=== PATIENT | male | born 1940 | race Caucasian/White ===

== ENCOUNTER 2016-12-17 14:20 | Emergency (ER) | payer MEDICARE, OTHER ==
[~2016-12-17] VITALS: Ht 170.1 cm; Wt 79.4 kg
[~2016-12-17 14:20] MED LIST: ATARAX25 MG PO; EYE; JANUVIA100 MG PO; KEFLEX500 MG PO; LEVEMIR10 ML SC; METFORMIN HCL1000 MG PO; METFORMIN1000 MG PO; PREDNISONE20 MG PO
[2016-12-17] MEDS ORDERED: CEPHALEXIN500 M1 PO (18:20)
== END 2016-12-17 18:36 | disposition home or self-care (01) ==
LOC: ED 14:20
DX: S01.21XA Laceration without foreign body of nose, initial encounter (principal); Z79.899 Other long term (current) drug therapy; V19.9XXA Pedal cyclist (driver) (passenger) injured in unspecified traffic accident, initial encounter; Y93.89 Activity, other specified; Y92.89 Other specified places as the place of occurrence of the external cause; Y99.8 Other external cause status

== ENCOUNTER 2017-05-09 15:28 | Emergency (ER) | payer MEDICARE, OTHER ==
[~2017-05-09] VITALS: Wt 95.3 kg
[~2017-05-09 15:28] MED LIST changes: +CEPHALEXIN500 M1 PO
[2017-05-09 16:02] LABS: BASO # 0.1 10*3/uL (0.0-0.1); BASO % 0.6 % (0.0-1.0); HEMATOCRIT 44.8 % (42.0-52.0); HEMOGLOBIN 15.2 g/dl (14.0-18.0); LYMPH # 0.5 10*3/uL (1.3-4.4); LYMPH % 4.5 % (27.0-41.0); MEAN CORPUSCULAR HGB 33.9 pg (27.0-31.0); MEAN CORPUSCULAR HGB CONC 33.9 g/dl (33.0-37.0); MEAN PLATELET VOLUME 11.4 fl (9.6-12.3); MONO # 0.3 10*3/uL (0.1-1.0); MONO % 3.3 % (3.0-9.0); NEUT # 9.4 10*3/uL (2.3-7.9); PLATELET COUNT AUTOMATED 107 10*3/uL (130-400); RED BLOOD COUNT 4.48 10*6/uL (4.50-5.90); RED CELL DISTRI WIDTH 13.2 % (0-14.5); WHITE BLOOD COUNT 10.4 10*3/uL (4.8-10.8)
[2017-05-09 16:18] LABS: ALBUMIN 3.3 gm/dl (3.1-4.5); ALKALINE PHOSPHATASE 172 U/L (45-117); BUN 15 mg/dl (7-24); CHLORIDE 103 mmol/L (98-107); CREATININE 1.34 mg/dL (0.70-1.30); POTASSIUM 4.1 mmol/L (3.5-5.1); SGOT/AST 40 IU/L (3-35); SGPT/ALT 49 U/L (12-78); SODIUM 137 mmol/L (136-145); TOTAL PROTEIN 6.9 gm/dL (6.4-8.2)
[2017-05-09 16:19] LABS: TROPONIN I < 0.015 ng/ml (<0.045)
[2017-05-09 16:21] LABS: BILIRUBIN NEGATIVE (NEGATIVE); BLOOD 1+ (NEGATIVE); CLARITY SL CLOUDY (CLEAR); COLOR YELLOW (YELLOW); GLUCOSE 3+ (NEGATIVE); KETONE TRACE (NEGATIVE); LEUKO ESTERASE NEGATIVE (NEGATIVE); NITRITE NEGATIVE (NEGATIVE); SPECIFIC GRAVITY 1.025 (1.005-1.030); UROBILINOGEN 0.2 E.U./dl (0.2-1.0)
[2017-05-09 16:30] LABS: ABG HCO3 9.6 mmol/l (22-26); ABG O2 SATURATION 95.8 % (95-97)
[2017-05-09 16:35] LABS: ABG BASE EXCESS -19.3 mmol/L (-2.0-2.0); ARTERIAL BLOOD GAS PH 7.127 (7.35-7.45)
[2017-05-09 16:43] LABS: BACTERIA TRACE
== END 2017-05-09 18:51 | disposition short-term general hospital (02) ==
LOC: ED 15:28
PROVIDERS: Emergency Medicine
DX: A41.9 Sepsis, unspecified organism (principal); R41.82 Altered mental status, unspecified; Z79.899 Other long term (current) drug therapy

== ENCOUNTER → 2017-05-21 | Outpatient (CLI) | payer MEDICARE, OTHER | END | disposition home or self-care (01) | LOC: RAD 11:25 | DX: M43.16 Spondylolisthesis, lumbar region (principal); M48.06 Spinal stenosis, lumbar region; M47.897 Other spondylosis, lumbosacral region; J18.9 Pneumonia, unspecified organism ==

== ENCOUNTER 2017-06-11 17:42 | Emergency (ER) | payer MEDICARE, OTHER ==
[~2017-06-11] VITALS: Wt 79.4 kg
[~2017-06-11 17:42] MED LIST changes: -LEVEMIR10 ML SC; +LEVEMIR100 UNIT/1 SC
[2017-06-11] MEDS ORDERED: LEVOFLOXACIN500 MG PO (19:00)
[2017-06-11] MEDS ORDERED: VITAMIN D350000 UNIT PO (19:01)
[2017-06-11 19:02] LABS: HEMATOCRIT 42.3 % (42.0-52.0); HEMOGLOBIN 14.2 g/dl (14.0-18.0); MEAN CELL VOLUME 100.2 fl (80.0-94.0); MEAN CORPUSCULAR HGB 33.6 pg (27.0-31.0); MEAN CORPUSCULAR HGB CONC 33.6 g/dl (33.0-37.0); MEAN PLATELET VOLUME 11.9 fl (9.6-12.3); PLATELET COUNT AUTOMATED 108 10*3/uL (130-400); RED BLOOD COUNT 4.22 10*6/uL (4.50-5.90); RED CELL DISTRI WIDTH 13.9 % (0-14.5); WHITE BLOOD COUNT 9.3 10*3/uL (4.8-10.8)
[2017-06-11 19:12] LABS: ACT PARTIAL THROMBO TIME 25.8 SECONDS (20.8-31.5); INTERNATIONAL NORM RATIO 1.1 (2.0-3.5)
[2017-06-11 19:20] LABS: ALKALINE PHOSPHATASE 227 U/L (45-117); BUN 12 mg/dl (7-24); CHLORIDE 106 mmol/L (98-107); CPK 98 U/L (39-308); CREATININE 1.19 mg/dL (0.70-1.30); POTASSIUM 4.3 mmol/L (3.5-5.1); SGOT/AST 47 IU/L (3-35); SGPT/ALT 51 U/L (12-78); SODIUM 137 mmol/L (136-145); TOTAL PROTEIN 6.7 gm/dL (6.4-8.2)
[2017-06-11 19:21] LABS: CKMB 2.2 ng/ml (0.5-3.6)
[2017-06-11 19:22] LABS: TROPONIN I 0.015 ng/ml (<0.045)
[2017-06-11 19:30] LABS: PLATELET SUFFICIENCY LOW (NORMAL); TOTAL CELLS COUNTED 100 #CELLS
[2017-06-11 19:31] LABS: BURR CELLS FEW
[2017-06-11 21:40] LABS: BILIRUBIN NEGATIVE (NEGATIVE); BLOOD 3+ (NEGATIVE); CLARITY SL CLOUDY (CLEAR); COLOR YELLOW (YELLOW); GLUCOSE 2+ (NEGATIVE); KETONE TRACE (NEGATIVE); LEUKO ESTERASE NEGATIVE (NEGATIVE); NITRITE NEGATIVE (NEGATIVE); PH 5.5 (5.0-9.0); SPECIFIC GRAVITY >= 1.030 (1.005-1.030); UROBILINOGEN 0.2 E.U./dl (0.2-1.0)
[2017-06-11 21:45] LABS: BACTERIA 2+
[2017-06-11 21:51] LABS: RBC 41-50 rbc/hpf (0-2)
[2017-06-11 21:52] LABS: MUCOUS TRACE
== END 2017-06-12 00:56 | disposition short-term general hospital (02) ==
LOC: ED 17:42
PROVIDERS: Nurse Practitioner
DX: R41.82 Altered mental status, unspecified (principal); R41.0 Disorientation, unspecified; Z79.899 Other long term (current) drug therapy

== ENCOUNTER → 2017-07-20 | Outpatient (CLI) | payer MEDICARE, OTHER ==
[~2017-07-20] MED LIST changes: +LEVOFLOXACIN500 MG PO; +VITAMIN D350000 UNIT PO
[2017-07-20 08:17] LABS: HEMATOCRIT 46.2 % (42.0-52.0); HEMOGLOBIN 15.6 g/dl (14.0-18.0); MEAN CELL VOLUME 98.1 fl (80.0-94.0); MEAN CORPUSCULAR HGB 33.1 pg (27.0-31.0); MEAN CORPUSCULAR HGB CONC 33.8 g/dl (33.0-37.0); MEAN PLATELET VOLUME 10.6 fl (9.6-12.3); RED BLOOD COUNT 4.71 10*6/uL (4.50-5.90); RED CELL DISTRI WIDTH 13.6 % (0-14.5); WHITE BLOOD COUNT 6.5 10*3/uL (4.8-10.8)
[2017-07-20 08:46] LABS: ALBUMIN 3.1 gm/dl (3.1-4.5); ALKALINE PHOSPHATASE 204 U/L (45-117); BUN 13 mg/dl (7-24); CHLORIDE 108 mmol/L (98-107); CREATININE 0.96 mg/dL (0.70-1.30); SGOT/AST 42 IU/L (3-35); SGPT/ALT 53 U/L (12-78); SODIUM 142 mmol/L (136-145); TOTAL PROTEIN 7.2 gm/dL (6.4-8.2)
[2017-07-20 10:27] LABS: VITAMIN D, 25-HYDROXY 45.7 ng/mL (30-100)
== END | disposition home or self-care (01) ==
LOC: LAB 07:38
PROVIDERS: Family Medicine
DX: I10 Essential (primary) hypertension (principal); E11.9 Type 2 diabetes mellitus without complications; E78.00 Pure hypercholesterolemia, unspecified; E55.9 Vitamin D deficiency, unspecified; R53.83 Other fatigue

== ENCOUNTER → 2017-08-10 | Outpatient (CLI) | payer MEDICARE, OTHER | END | disposition home or self-care (01) | LOC: RAD 10:51 | DX: M25.512 Pain in left shoulder (principal); M25.511 Pain in right shoulder ==

== ENCOUNTER → 2017-11-22 | Outpatient (CLI) | payer MEDICARE, OTHER ==
[2017-11-22 10:01] LABS: ALBUMIN 3.2 gm/dl (3.1-4.5); BUN 14 mg/dl (7-24); CHLORIDE 108 mmol/L (98-107); CREATININE 0.88 mg/dL (0.70-1.30); POTASSIUM 3.9 mmol/L (3.5-5.1); SGOT/AST 41 IU/L (3-35); SGPT/ALT 55 U/L (12-78); SODIUM 142 mmol/L (136-145); TOTAL PROTEIN 6.9 gm/dL (6.4-8.2)
[2017-11-22 10:10] LABS: ALKALINE PHOSPHATASE 170 U/L (45-117)
[2017-11-23 08:04] LABS: IMMUNOGLOBULIN G, QNT 913 mg/dL (700-1600); IMMUNOGLOBULIN M, QNT 41 mg/dL (15-143)
[2017-11-23 09:06] LABS: TOTAL PROTEIN, SERUM 6.3 g/dL (6.0-8.5)
[2017-11-24 16:07] LABS: A/G RATIO 1.3 (0.7-1.7); ALBUMIN 3.6 g/dL (2.9-4.4); ALPHA-1-GLOBULIN 0.1 g/dL (0.0-0.4); ALPHA-2-GLOBULIN 0.6 g/dL (0.4-1.0); BETA GLOBULIN 1.2 g/dL (0.7-1.3); GAMMA GLOBULIN 0.7 g/dL (0.4-1.8); GLOBULIN, TOTAL 2.7 g/dL (2.2-3.9); M-SPIKE Not Observed g/dL (Not Observed)
== END | disposition home or self-care (01) ==
LOC: LAB 08:26
PROVIDERS: Psychiatry & Neurology Neurology
DX: R20.9 Unspecified disturbances of skin sensation (principal)

== ENCOUNTER 2017-11-30 04:57 | Emergency (ER) | payer MEDICARE, OTHER ==
[~2017-11-30] VITALS: Wt 78.5 kg
[2017-11-30] MEDS ORDERED: LEVETIRACETAM250 MG PO (05:19)
[2017-11-30] MEDS ORDERED: LEVETIRACETAM500 MG PO (05:20)
[2017-11-30 05:35] LABS: BASO # 0.1 10*3/uL (0.0-0.1); BASO % 0.9 % (0.0-1.0); EOS # 0.1 10*3/uL (0.0-0.4); EOS % 0.7 % (1.0-4.0); HEMATOCRIT 45.2 % (42.0-52.0); HEMOGLOBIN 14.9 g/dl (14.0-18.0); LYMPH # 2.1 10*3/uL (1.3-4.4); LYMPH % 27.5 % (27.0-41.0); MEAN CELL VOLUME 101.1 fl (80.0-94.0); MEAN CORPUSCULAR HGB 33.3 pg (27.0-31.0); MEAN PLATELET VOLUME 11.4 fl (9.6-12.3); MONO # 0.5 10*3/uL (0.1-1.0); MONO % 6.6 % (3.0-9.0); NEUT # 4.9 10*3/uL (2.3-7.9); PLATELET COUNT AUTOMATED 133 10*3/uL (130-400); RED BLOOD COUNT 4.47 10*6/uL (4.50-5.90); RED CELL DISTRI WIDTH 14.5 % (0-14.5); WHITE BLOOD COUNT 7.6 10*3/uL (4.8-10.8)
[2017-11-30 06:23] LABS: ALBUMIN 3.1 gm/dl (3.1-4.5); ALKALINE PHOSPHATASE 198 U/L (45-117); BUN 12 mg/dl (7-24); CHLORIDE 107 mmol/L (98-107); CREATININE 1.22 mg/dL (0.70-1.30); ETHYL ALCOHOL < 3.0 mg/dl (<3); LIPASE 173 U/L (73-393); POTASSIUM 4.7 mmol/L (3.5-5.1); SGOT/AST 65 IU/L (3-35); SGPT/ALT 60 U/L (12-78); SODIUM 144 mmol/L (136-145); TOTAL PROTEIN 6.9 gm/dL (6.4-8.2); TROPONIN I < 0.015 ng/ml (<0.045)
[2017-11-30 07:22] LABS: BILIRUBIN NEGATIVE (NEGATIVE); BLOOD NEGATIVE (NEGATIVE); CLARITY CLEAR (CLEAR); COLOR YELLOW (YELLOW); GLUCOSE 3+ (NEGATIVE); KETONE NEGATIVE (NEGATIVE); LEUKO ESTERASE NEGATIVE (NEGATIVE); NITRITE NEGATIVE (NEGATIVE); UROBILINOGEN 0.2 E.U./dl (0.2-1.0)
[2017-11-30 07:28] LABS: URINE AMPHETAMINES < 1000 (1000ng/ml); URINE BARBITURATES < 200 (200ng/ml); URINE BENZODIAZEPINES < 200 (200ng/ml); URINE CANNABINOIDS (THC) < 50 (50ng/ml); URINE COCAINE < 300 (300ng/ml); URINE METHADONE < 300 (300ng/ml); URINE OPIATES < 300 (300ng/ml)
[2017-11-30 07:36] LABS: BACTERIA TRACE
[2017-11-30 07:38] LABS: URINE PHENCYCLIDINE < 25 (25ng/ml)
== END 2017-11-30 09:54 | disposition short-term general hospital (02) ==
LOC: ED 04:57
PROVIDERS: Emergency Medicine Emergency Medical Services
DX: R56.9 Unspecified convulsions (principal); R09.02 Hypoxemia; Z98.890 Other specified postprocedural states; Z87.442 Personal history of urinary calculi; Z79.899 Other long term (current) drug therapy; Z88.8 Allergy status to other drugs, medicaments and biological substances; Z79.4 Long term (current) use of insulin

== ENCOUNTER → 2017-12-23 | Outpatient (CLI) | payer MEDICARE, OTHER ==
[~2017-12-23] MED LIST changes: +LEVETIRACETAM250 MG PO; +LEVETIRACETAM500 MG PO
[2017-12-23 15:06] LABS: ALBUMIN 3.2 gm/dl (3.1-4.5); ALKALINE PHOSPHATASE 248 U/L (45-117); BUN 13 mg/dl (7-24); CHLORIDE 104 mmol/L (98-107); CREATININE 1.02 mg/dL (0.70-1.30); POTASSIUM 4.5 mmol/L (3.5-5.1); SGOT/AST 63 IU/L (3-35); SGPT/ALT 81 U/L (12-78); SODIUM 140 mmol/L (136-145); TOTAL PROTEIN 6.9 gm/dL (6.4-8.2)
== END | disposition home or self-care (01) ==
LOC: LAB 13:41
DX: R56.9 Unspecified convulsions (principal); R25.1 Tremor, unspecified; Z79.899 Other long term (current) drug therapy

== ENCOUNTER 2018-01-23 15:35 | Emergency (ER) | payer MEDICARE, OTHER ==
[~2018-01-23] VITALS: Ht 170.1 cm; Wt 72.6 kg
[2018-01-23] MEDS ORDERED: TRILEPTAL300 MG PO (15:59)
[2018-01-23 17:23] LABS: BASO % 0.5 % (0.0-1.0); EOS % 0.2 % (1.0-4.0); HEMOGLOBIN 14.1 g/dl (14.0-18.0); LYMPH # 0.5 10*3/uL (1.3-4.4); LYMPH % 8.6 % (27.0-41.0); MEAN CELL VOLUME 101.4 fl (80.0-94.0); MEAN CORPUSCULAR HGB 34.1 pg (27.0-31.0); MEAN CORPUSCULAR HGB CONC 33.6 g/dl (33.0-37.0); MEAN PLATELET VOLUME 11.2 fl (9.6-12.3); MONO # 0.3 10*3/uL (0.1-1.0); MONO % 5.2 % (3.0-9.0); NEUT # 5.1 10*3/uL (2.3-7.9); PLATELET COUNT AUTOMATED 92 10*3/uL (130-400); RED BLOOD COUNT 4.14 10*6/uL (4.50-5.90); RED CELL DISTRI WIDTH 13.3 % (0-14.5)
[2018-01-23 17:33] LABS: ACT PARTIAL THROMBO TIME 24.2 SECONDS (20.8-31.5)
[2018-01-23 17:40] LABS: ALBUMIN 3.1 gm/dl (3.1-4.5); ALKALINE PHOSPHATASE 209 U/L (45-117); BUN 14 mg/dl (7-24); CHLORIDE 105 mmol/L (98-107); CREATININE 1.04 mg/dL (0.70-1.30); LIPASE 105 U/L (73-393); POTASSIUM 4.8 mmol/L (3.5-5.1); SGOT/AST 50 IU/L (3-35); SGPT/ALT 59 U/L (12-78); SODIUM 138 mmol/L (136-145); TOTAL PROTEIN 6.5 gm/dL (6.4-8.2)
[2018-01-23 17:48] LABS: TROPONIN I < 0.015 ng/ml (<0.045)
== END 2018-01-23 19:40 | disposition short-term general hospital (02) ==
LOC: ED 15:35
PROVIDERS: Nurse Practitioner Family
DX: R56.9 Unspecified convulsions (principal); Z88.8 Allergy status to other drugs, medicaments and biological substances; Z79.4 Long term (current) use of insulin; Z79.899 Other long term (current) drug therapy

== ENCOUNTER 2018-02-17 14:07 | Emergency (ER) | payer MEDICARE, OTHER ==
[~2018-02-17] VITALS: Ht 172.7 cm; Wt 77.1 kg
[~2018-02-17 14:07] MED LIST changes: +TRILEPTAL300 MG PO
== END 2018-02-17 19:56 | disposition short-term general hospital (02) ==
LOC: ED 14:07
DX: R56.9 Unspecified convulsions (principal); Z98.890 Other specified postprocedural states; Z87.442 Personal history of urinary calculi; Z88.8 Allergy status to other drugs, medicaments and biological substances

== ENCOUNTER → 2018-08-09 | Outpatient (CLI) | payer MEDICARE, OTHER ==
[2018-08-09 09:43] LABS: HEMATOCRIT 45.7 % (42.0-52.0); HEMOGLOBIN 15.6 g/dl (14.0-18.0); MEAN CELL VOLUME 102.5 fl (80.0-94.0); MEAN CORPUSCULAR HGB CONC 34.1 g/dl (33.0-37.0); MEAN PLATELET VOLUME 11.8 fl (9.6-12.3); RED BLOOD COUNT 4.46 10*6/uL (4.50-5.90); RED CELL DISTRI WIDTH 13.6 % (0-14.5); WHITE BLOOD COUNT 6.7 10*3/uL (4.8-10.8)
[2018-08-09 10:12] LABS: ALBUMIN 3.3 gm/dl (3.1-4.5); ALKALINE PHOSPHATASE 202 U/L (45-117); BUN 12 mg/dl (7-24); CHLORIDE 106 mmol/L (98-107); CHOLESTEROL 212 mg/dL (<200); CREATININE 0.84 mg/dL (0.70-1.30); HDL CHOLESTEROL 57 mg/dl (40-60); LDL CHOLESTEROL 118 mg/dL (9-159); POTASSIUM 3.6 mmol/L (3.5-5.1); SGOT/AST 62 IU/L (3-35); SGPT/ALT 68 U/L (12-78); SODIUM 143 mmol/L (136-145); TOTAL PROTEIN 7.1 gm/dL (6.4-8.2); TRIGLYCERIDES 184 mg/dl (<150); VLDL CHOLESTEROL 37 mg/dL (6-40)
== END | disposition home or self-care (01) ==
LOC: LAB 07:56
PROVIDERS: Family Medicine
DX: I10 Essential (primary) hypertension (principal); E11.9 Type 2 diabetes mellitus without complications; E78.00 Pure hypercholesterolemia, unspecified

== ENCOUNTER → 2019-03-30 | Outpatient (CLI) | payer MEDICARE, OTHER | END | disposition home or self-care (01) | LOC: RAD 11:33 | DX: S22.049A Unspecified fracture of fourth thoracic vertebra, initial encounter for closed fracture (principal); S22.039A Unspecified fracture of third thoracic vertebra, initial encounter for closed fracture; X58.XXXA Exposure to other specified factors, initial encounter; Y93.89 Activity, other specified; Y92.89 Other specified places as the place of occurrence of the external cause; Y99.8 Other external cause status ==

== ENCOUNTER → 2019-04-11 | Outpatient (CLI) | payer MEDICARE, OTHER ==
[2019-04-13 06:10] LABS: HEPATITIS B SURFACE AG Negative (Negative); HEPATITIS C VIRUS ANTIBODY <0.1 s/co (0.0-0.9)
[2019-04-13 15:09] LABS: ANTI-SMOOTH MUSCLE ANTIBODY 6 Units (0-19)
== END | disposition home or self-care (01) ==
LOC: LAB 08:46
PROVIDERS: Family Medicine
DX: K74.60 Unspecified cirrhosis of liver (principal); R10.9 Unspecified abdominal pain

== ENCOUNTER → 2019-04-23 | Outpatient (CLI) | payer MEDICARE, OTHER | END | disposition home or self-care (01) | LOC: US 10:59 | DX: K80.20 Calculus of gallbladder without cholecystitis without obstruction (principal); K74.60 Unspecified cirrhosis of liver ==

== ENCOUNTER → 2019-07-04 | Outpatient (CLI) | payer MEDICARE, OTHER ==
[2019-07-04 10:26] LABS: HEMATOCRIT 41.6 % (42.0-52.0); HEMOGLOBIN 14.1 g/dl (14.0-18.0); MEAN CELL VOLUME 101.7 fl (80.0-94.0); MEAN CORPUSCULAR HGB 34.5 pg (27.0-31.0); MEAN CORPUSCULAR HGB CONC 33.9 g/dl (33.0-37.0); MEAN PLATELET VOLUME 10.3 fl (9.6-12.3); RED BLOOD COUNT 4.09 10*6/uL (4.50-5.90); RED CELL DISTRI WIDTH 14.4 % (0-14.5); WHITE BLOOD COUNT 5.5 10*3/uL (4.8-10.8)
[2019-07-04 10:34] LABS: ALBUMIN 3.1 gm/dl (3.1-4.5); ALKALINE PHOSPHATASE 213 U/L (45-117); BUN 11 mg/dl (7-24); CHLORIDE 105 mmol/L (98-107); CHOLESTEROL 201 mg/dL (<200); CREATININE 0.73 mg/dL (0.70-1.30); HDL CHOLESTEROL 69 mg/dl (40-60); LDL CHOLESTEROL 112 mg/dL (9-159); POTASSIUM 3.6 mmol/L (3.5-5.1); SGOT/AST 59 IU/L (3-35); SGPT/ALT 71 U/L (12-78); SODIUM 137 mmol/L (136-145); TOTAL PROTEIN 6.5 gm/dL (6.4-8.2); TRIGLYCERIDES 99 mg/dl (<150); VLDL CHOLESTEROL 20 mg/dL (6-40)
== END | disposition home or self-care (01) ==
LOC: LAB 09:20
PROVIDERS: Family Medicine
DX: E78.00 Pure hypercholesterolemia, unspecified (principal); E11.9 Type 2 diabetes mellitus without complications; I10 Essential (primary) hypertension

== ENCOUNTER → 2019-08-12 | Outpatient (CLI) | payer MEDICARE, OTHER | END | disposition home or self-care (01) | LOC: RAD 12:49 | DX: J90 Pleural effusion, not elsewhere classified (principal) ==

== ENCOUNTER → 2020-03-05 | Outpatient (CLI) | payer MEDICARE, OTHER ==
[2020-03-05 09:01] LABS: MEAN CELL VOLUME 103.7 fl (80.0-94.0); MEAN CORPUSCULAR HGB 35.3 pg (27.0-31.0); RED BLOOD COUNT 4.05 10*6/uL (4.50-5.90); RED CELL DISTRI WIDTH 14.3 % (0-14.5); WHITE BLOOD COUNT 5.1 10*3/uL (4.8-10.8)
[2020-03-05 09:30] LABS: ALBUMIN 2.9 gm/dl (3.1-4.5); ALKALINE PHOSPHATASE 212 U/L (45-117); BUN 15 mg/dl (7-24); CHLORIDE 107 mmol/L (98-107); CHOLESTEROL 201 mg/dL (<200); CREATININE 0.85 mg/dL (0.70-1.30); HDL CHOLESTEROL 57 mg/dl (40-60); LDL CHOLESTEROL 116 mg/dL (9-159); POTASSIUM 3.9 mmol/L (3.5-5.1); SGOT/AST 36 IU/L (3-35); SGPT/ALT 43 U/L (12-78); SODIUM 140 mmol/L (136-145); TOTAL PROTEIN 6.4 gm/dL (6.4-8.2); TRIGLYCERIDES 142 mg/dl (<150); VLDL CHOLESTEROL 28 mg/dL (6-40)
[2020-03-05 10:36] LABS: VITAMIN D, 25-HYDROXY 42.8 ng/mL (30-100)
[2020-03-09 00:06] LABS: LACOSAMIDE 10.3 ug/mL (5.0-10.0)
== END | disposition home or self-care (01) ==
LOC: LAB 08:26
PROVIDERS: Family Medicine; Psychiatry & Neurology Neurology
DX: Z12.5 Encounter for screening for malignant neoplasm of prostate (principal); Z13.220 Encounter for screening for lipoid disorders; E78.00 Pure hypercholesterolemia, unspecified; G40.309 Generalized idiopathic epilepsy and epileptic syndromes, not intractable, without status epilepticus; I10 Essential (primary) hypertension; E11.9 Type 2 diabetes mellitus without complications; E55.9 Vitamin D deficiency, unspecified; M19.90 Unspecified osteoarthritis, unspecified site

== ENCOUNTER → 2020-03-19 | Outpatient (CLI) | payer MEDICARE, OTHER ==
[2020-03-21 11:07] LABS: PROSTATE SPECIFIC AG FREE 1.72 ng/mL; PROSTATE SPECIFIC AG, SERUM 4.8 ng/mL (0.0-4.0)
== END | disposition home or self-care (01) ==
LOC: LAB 10:33
PROVIDERS: Family Medicine
DX: R97.20 Elevated prostate specific antigen [PSA] (principal)

== ENCOUNTER → 2020-06-18 | Outpatient (CLI) | payer MEDICARE, OTHER ==
[2020-06-18 09:59] LABS: HEMATOCRIT 39.5 % (42.0-52.0); MEAN CORPUSCULAR HGB 34.4 pg (27.0-31.0); MEAN CORPUSCULAR HGB CONC 34.4 g/dl (33.0-37.0); MEAN PLATELET VOLUME 11.2 fl (9.6-12.3); RED BLOOD COUNT 3.95 10*6/uL (4.50-5.90); RED CELL DISTRI WIDTH 14.3 % (0-14.5); WHITE BLOOD COUNT 4.5 10*3/uL (4.8-10.8)
[2020-06-18 10:23] LABS: BUN 14 mg/dl (7-24); CHLORIDE 108 mmol/L (98-107); CREATININE 0.87 mg/dL (0.70-1.30); SGOT/AST 54 IU/L (3-35); SGPT/ALT 57 U/L (12-78); SODIUM 137 mmol/L (136-145)
[2020-06-18 10:32] LABS: ALKALINE PHOSPHATASE 219 U/L (45-117); CHOLESTEROL 202 mg/dL (<200); HDL CHOLESTEROL 68 mg/dl (40-60); LDL CHOLESTEROL 114 mg/dL (9-159); TOTAL PROTEIN 6.5 gm/dL (6.4-8.2); TRIGLYCERIDES 99 mg/dl (<150); VLDL CHOLESTEROL 20 mg/dL (6-40)
[2020-06-18 11:02] LABS: VITAMIN D, 25-HYDROXY 20.7 ng/mL (30-100)
== END | disposition home or self-care (01) ==
LOC: LAB 09:25
PROVIDERS: Psychiatry & Neurology Neurology; ATTEND Family Medicine
DX: E11.9 Type 2 diabetes mellitus without complications (principal); E78.00 Pure hypercholesterolemia, unspecified; M54.30 Sciatica, unspecified side; I10 Essential (primary) hypertension; E55.9 Vitamin D deficiency, unspecified; G40.909 Epilepsy, unspecified, not intractable, without status epilepticus

== ENCOUNTER 2020-07-20 10:39 | Inpatient (IN) | payer MEDICARE, OTHER ==
[~2020-07-20] VITALS: Ht 170.1 cm; Wt 77.6 kg
[2020-07-20 10:52] VITALS: BP 151/64
--- NOTE | 2020-07-20 11:11 | NUR ---
PATIENT ENCOURAGED THAT A URINE SPECEMIN IS NEEDED. CALL LIGHT IN REACH. PT CALM. COOPERATIVE. RESTING. WILL CONTINUE TO MONITOR PT.
[2020-07-20 11:20] LABS: BASO % 0.5 % (0.0-1.0); EOS # 0.1 10*3/uL (0.0-0.4); EOS % 0.9 % (1.0-4.0); LYMPH # 0.6 10*3/uL (1.3-4.4); LYMPH % 10.8 % (27.0-41.0); MEAN CELL VOLUME 104.5 fl (80.0-94.0); MEAN CORPUSCULAR HGB 34.3 pg (27.0-31.0); MEAN CORPUSCULAR HGB CONC 32.9 g/dl (33.0-37.0); MEAN PLATELET VOLUME 9.9 fl (9.6-12.3); MONO # 0.3 10*3/uL (0.1-1.0); MONO % 5.7 % (3.0-9.0); NEUT # 4.6 10*3/uL (2.3-7.9); NEUT % 81.7 % (47.0-73.0); PLATELET COUNT AUTOMATED 162 10*3/uL (130-400); RED BLOOD COUNT 4.02 10*6/uL (4.50-5.90); RED CELL DISTRI WIDTH 13.6 % (0-14.5); WHITE BLOOD COUNT 5.6 10*3/uL (4.8-10.8)
[2020-07-20 11:32] LABS: ACT PARTIAL THROMBO TIME 27.2 SECONDS (20.0-32.1); INTERNATIONAL NORM RATIO 1.1 (2.0-3.5)
[2020-07-20 11:35] LABS: ALBUMIN 3.1 gm/dl (3.1-4.5); ALKALINE PHOSPHATASE 270 U/L (45-117); BUN 27 mg/dl (7-24); CHLORIDE 111 mmol/L (98-107); CREATININE 1.04 mg/dL (0.70-1.30); POTASSIUM 4.6 mmol/L (3.5-5.1); SGOT/AST 63 IU/L (3-35); SGPT/ALT 58 U/L (12-78); SODIUM 141 mmol/L (136-145); TOTAL PROTEIN 6.8 gm/dL (6.4-8.2)
[2020-07-20 11:40] LABS: TROPONIN I < 0.015 ng/ml (<0.045)
[2020-07-20 13:09] LABS: BILIRUBIN Negative (Negative); BLOOD Negative (Negative); CLARITY Clear (Clear); COLOR Dark Yellow (Yellow); GLUCOSE Negative (Negative); KETONE Negative (Negative); LEUKO ESTERASE Trace (Negative); NITRITE Negative (Negative); SPECIFIC GRAVITY 1.025 (1.001-1.030)
[2020-07-20 13:15] LABS: URINE AMPHETAMINES < 1000 (1000ng/ml); URINE BARBITURATES < 200 (200ng/ml); URINE BENZODIAZEPINES < 200 (200ng/ml); URINE CANNABINOIDS (THC) < 50 (50ng/ml); URINE COCAINE < 300 (300ng/ml); URINE METHADONE < 300 (300ng/ml); URINE OPIATES < 300 (300ng/ml); URINE PHENCYCLIDINE < 25 (25ng/ml)
[2020-07-20 13:32] LABS: BACTERIA TRACE; EPITHELIAL CELLS 0-2; MUCOUS 2+
--- NOTE | 2020-07-20 14:05 | NUR ---
PATIENT BEGAN TO GET AGITATED AND ATTEMPING TO ESCAPE OUT OF BED. PROVIDER NOTIFIED. PROVIDER CALLED AND REPORTED TO THE PATIENTS ROOM. PATIENTS DOES HAVE HOME MEDICATIONS AND PROVIDER ACRLOS VERBALIZES INSTRUCTION TO ADMINISTER THE PATIENTS SEROQUIL. WITNESSED BY MYSELF, PROVIDER William MOORE, OCEANOGRAPHY TEACHER STUDENT AND VALERIO SCHUMACHER. PATIENT ASSISTED BACK INTO BED. CALL LIGHT IN REACH. WILL CONTINUE TO MONITOR PT.
[2020-07-20] MEDS ORDERED: VIMPAT100 MG PO (14:59)
[2020-07-20 15:00] VITALS: BP 162/82
--- NOTE | 2020-07-20 15:00 | NUR ---
PATIENT RESTING IN BED AT THIS TIME. HE WAS PROVIDED A MEAL TRAY. ASSISTING HIM TO EAT. PT CALM. COOPERATIVE. CALL LIGHT IN REACH.
[2020-07-20] MEDS ORDERED: SEROQUEL25 MG PO (15:24)
[2020-07-20] MEDS ORDERED: LANTUS SOL100 UNIT/1 SC (15:25)
[2020-07-20] MEDS ORDERED: ZONEGRAN100 MG PO (15:27)
[2020-07-20] MEDS ORDERED: HEALTHY HEART1 EACH PO (15:28)
--- NOTE | 2020-07-20 15:29 | NUR ---
IN TO ROOM. PATIENT IS AWAKE, ALERT AND ORIENTED. IS AT BED SIDE. RESPIRATIONS ARE EASY AND REGULAR ON ROOM AIR. NO SOB NOTED AT REST. BED IS IN LOWEST LOCKED POSITION AND CALL LIGHT WITHIN REACH. MEDICATIONS WERE DISCUSSED WITH PATIENT'S . PT IS ABLE TO REPOSITION SELF AND IS ENCOURAGED TO DO SO. BED IN LOWEST LOCKED POSITION AND CALL LIGHT WITHIN REACH
--- NOTE | 2020-07-20 15:45 | NUR ---
PT CALM. COOPERATIVE. WILL CONTINUE TO MONITOR PT.
--- NOTE | 2020-07-20 16:43 | NUR ---
PATIENTS REPORTS TO THE NURSES STATION AND STATES THAT SHE WOULD LIKE A SITTER FOR HER . PATIENT IS RESTING IN BED AT THIS TIME. CALM. COOPERATIVE. WAS INFORMED THAT THE AUTO DESIGN DETAILER WILL NEED TO BE CONTACTED IN REGARDS TO THIS.
--- NOTE | 2020-07-20 16:57 | NUR ---
I SPOKE TO THE DIRECTOR OF CASINO AND SHE STATED THAT THERE ARE NO SITTERS AVAILABLE FOR THE PATIENT. PATIENTS INFORMED. I MYSELF CONTACTED THE 4TH AND 5TH FLOOR IN ATTEMPT TO GET A CHAIR/BED ALARM FOR THE PATIENT AND THEY SAID THEY WILL TAKE A LOOK UP ON THE FLOOR.
--- NOTE | 2020-07-20 17:15 | NUR ---
A BED ALARM WAS PLACED ON THE PATIENT FOR HIS SAFETY. PATIENT PROVIDED A DINNER TRAY. WILL CONTINUE TO MONITOR PT. CALL LIGHT IN REACH. PATIENT WATCHING TELEVISION.
--- NOTE | 2020-07-20 19:54 | NUR ---
PATIENT IS RESTING IN BED AT THIS TIME. WATCHING TELEVISION. CALL LIGHT IN REACH.
[2020-07-20 20:40] VITALS: BP 153/88
--- NOTE | 2020-07-20 20:40 | NUR ---
A 80, admitted to 5E, under the services of Dr. MASHA SORENSON,SATISH Hinson with a diagnosis of INABILITY TO WALK, ADULT FAILURE TO THRIVE. Chief complaint is CHANGE IN MENTAL STATUS. Patient arrived via wheel chair from ER. Monitor applied. Initial assessment completed. Vital signs taken and recorded. DR. MASHA SORENSON,SATISH Hinson notified of admission to the unit. Orders received. See assessment for past medical history, medications and allergies. Patient and/or family oriented to unit. visitation policy reviewed. Clothing/patient valuable form completed. CARROLL HARRISON
--- NOTE | 2020-07-20 20:40 | NUR ---
PATIENT TAKEN TO 509. REPORT WAS GIVEN TO NURSE HODGES.
--- NOTE | 2020-07-20 20:45 | NUR ---
PATIENT VERY AGITATED UPON ARRIVAL TO THE FLOOR. PATIENT STATING HE IS LEAVING AND NO ONE IS STOPPING HIM. PATIENT CONTINUOUSLY ATTEMPTING TO GET OUT OF BED AND WALK OUT. BED ALARM APPLIED TO PATIENT'S BED. PA IN ROOM WITH PATIENT AT THIS TIME.
--- NOTE | 2020-07-20 21:00 | NUR ---
DR. LFANAGAN NOTIFIED OF ADMISSION TO FLOOR WITH NEW ORDERS RECEIVED. PATIENT BEING ASSISTED INTO GERICHAIR AND BEING EXTREMELY COMBATIVE. NIKOLAI CURRAN CALLED AT THIS TIME. PATIENT KICKING, BITING, SCREAMING AND PUNCHING AT THIS TIME. DR. FLANAGAN ORDERED HALDOL 1MG IM Q 1 HOUR PRN FOR AGITATION, NOT TO EXCEEP 4M IN 24 HOURS. SECURITY AND OTHER STAFF MEMBERS PRESENT TO CONTROL PATIENT.
--- NOTE | 2020-07-20 21:34 | NUR ---
PATIENT MEDICATED WITH HALDOL 1MG IM FOR AGITATON AND COMBATIVENESS. KICKING AND BITING AT THIS TIME. WILL CONTINUE TO MONITOR. SITTING IN GERICHAIR AT PRESENT.
--- NOTE | 2020-07-20 21:34 | NUR ---
PATIENT ALSO RIPPED IV OUT. REFUSES TO LET NURSE START ANOTHER ONE.
--- NOTE | 2020-07-20 21:50 | NUR ---
PATIENT CALMED DOWN AT THIS TIME. CONTINUES TO SIT IN GERICHAIR AT PRESENT AT NURSE'S STATION. WILL CONTINUE TO MONITOR. CALL LIGHT IN REACH.
[2020-07-21 00:06] VITALS: BP 119/57
--- NOTE | 2020-07-21 03:00 | NUR ---
PATIENT CLIMBING OUT OF BED AGAIN AND WANTING TO WALK AROUND UNASSISTED. WHEN STAFF TRIES TO HELP PATIENT HE GETS AGITATED AND STARTS TO BECOME COMBATIVE. NIKOLAI CURRAN CALLED AGAIN. DR. WALDEN, SECURITY AND RESPIRATORY ARRIVED TO FLOOR.
--- NOTE | 2020-07-21 03:07 | NUR ---
MEDICATED WITH HALDOL 1MG IM AGAIN. SITTING IN CHAIR IN ROOM AT PRESENT TALKING WITH STAFF AND CALMING DOWN. WILL CONTINUE TO MONITOR.
--- NOTE | 2020-07-21 05:14 | NUR ---
JACIEL NOTIFIED OF CONSULT FOR DR. NGUYEN FOR CONSULT FOR PSYCH MEDS. CLAY SAID SHE WOULD ADRIAN IT DOWN.
--- NOTE | 2020-07-21 07:55 | NUR ---
PHYSICAL THERAPY Screen and PT eval received will follow thank you Meseret Burton PT
[2020-07-21 08:00] VITALS: BP 134/69
--- NOTE | 2020-07-21 08:30 | NUR ---
PHYSICAL THERAPY Physical Therapy evaluation completed on 5th floor with full evaluation to follow. Recommend physical therapy per plan of care and SNF upon discharge. Thank you for this referral. Jayy Ellison SPT Meseret Burton PT
[2020-07-21 11:18] LABS: FREE T4 0.76 ng/dl (0.76-1.46)
[2020-07-21 11:23] LABS: THYROID STIM HORMONE (HS) 2.96 uIU/ml (0.358-4.75)
[2020-07-21 11:53] LABS: VITAMIN D, 25-HYDROXY 31.6 ng/mL (30-100)
[2020-07-21 12:00] VITALS: BP 139/73
--- NOTE | 2020-07-21 12:40 | NUR ---
PT GIVEN 1 MG PO HALDOL FOR S/S AGITATION. WILL MONITOR FOR EFFECTIVENESS. CALL LIGHT IN REACH.
[2020-07-21 16:00] VITALS: BP 116/70
[2020-07-21 20:00] VITALS: BP 146/73
--- NOTE | 2020-07-21 20:05 | NUR ---
PT SITTING UP IN RECLINER CHAIR. PT ANXIOUS WILL NOT STAY IN ROOM. BODY ALARM PLACED ON PT. ADMINISTERED HALDOL PO, SEE EMAR. TOLERATED ROUTINE MED WITH NO PROBLEM. CALL LIGHT IN REACH. IN VIEW OF NURSES STATION.
--- NOTE | 2020-07-21 21:00 | NUR ---
PT PLACED IN CHAIR AT NURSES DESK WITH BODY ALARM ON GOWN. HALDOL CALMED PT DOWN, BUT STILL RESTLESS AT TIMES.
[2020-07-22] VITALS: BP 117/51
--- NOTE | 2020-07-22 | NUR ---
PT SITTING IN RECLINER CHAIR AT NURSING DESK. RESP-EASY AND REGULAR. NO C/O AT THIS TIME. CALL LIGHT IN REACH. SEE SHIFT ASSESSMENT.
--- NOTE | 2020-07-22 03:00 | NUR ---
PT SLEEPING IN BED. RESP-EASY AND REGULAR. CALL LIGHT IN REACH. BED ALARM ON.
--- NOTE | 2020-07-22 06:00 | NUR ---
PT AWAKE SITING IN RECLINER AT DESK. BODY ALARM ON PT.
[2020-07-22 08:00] VITALS: BP 114/56
--- NOTE | 2020-07-22 10:02 | NUR ---
CONFERENCE ORGANIZER SPOKE WITH PATIENT AND AT BEDSIDE. PATIENTS STATED SHE IS LOOKING FOR LTC PLACEMENT FOR THE PATIENT. CONFERENCE ORGANIZER WILL PROVIDE THIS PATIENTS WITH A LIST OF FACILITIES TO CHOOSE FROM. CONFERENCE ORGANIZER WILL ALSO PROVIDE THE PATIENT WITH A MEDICAID APPLICATION.
[2020-07-22 12:00] VITALS: BP 128/62
--- NOTE | 2020-07-22 15:43 | NUR ---
DR. GTZ NOTIFIED OF PODIATRY CONSULT.
[2020-07-22 16:00] VITALS: BP 101/84
[2020-07-22 20:00] VITALS: BP 134/67
--- NOTE | 2020-07-22 20:04 | NUR ---
PT SITTING UP IN CHAIR. RESPIRATIONS EASY AND UNLABORED ON ROOM AIR. NO DISTRESS NOTED. NO COMPLAINTS VOICED BY PT.
--- NOTE | 2020-07-22 23:41 | NUR ---
PT GIVEN TYLENOL AND PO HALDOL 1 MG FOR C/O BACK PAIN AND S/S OF AGITATION. WILL MONITOR FOR EFFECTIVENESS OF MEDICATIONS.
[2020-07-23] VITALS: BP 123/50
--- NOTE | 2020-07-23 00:41 | NUR ---
TYLENOL AND HALDOL APPEAR EFFECTIVE AT THIS TIME. PT RESTING IN BED, SLEEPING. RESPIRATIONS EASY AND UNLABORED. CALL LIGHT IN REACH.
--- NOTE | 2020-07-23 03:55 | NUR ---
PT RESTING IN BED. RESPIRATIONS UNLABORED. NO S/S OF DISTRESS. SAFETY MEASURES IN PLACE. CALL LIGHT IN REACH.
[2020-07-23 08:00] VITALS: BP 125/64
[2020-07-23 12:00] VITALS: BP 117/51
--- NOTE | 2020-07-23 14:15 | NUR ---
Patient resting quietly with no c/o discomfort. Respirations easy and regular. Vital signs stable. No overt distress.No behaviors noted.Alarm intact. Call light in reach. PIYUSH LEONARD
[2020-07-23 16:00] VITALS: BP 133/55
--- NOTE | 2020-07-23 19:45 | NUR ---
PATIENT RESITING IN CHAIR. REORIENTED. BODY ALARM IN PLACE. ASSESSMENT COMPLETE. PATIENT CO SOME BACK PAIN. DENIES ANY NEEDS OR OTHER COMPLAINTS. PATIENT WANTING TO TALK TO HIS . ASSISTED HIM WITH CALLING HIS . PATIENT CALM. CALL LIGHT IN REACH.
[2020-07-23 20:00] VITALS: BP 112/56
--- NOTE | 2020-07-23 20:39 | NUR ---
MEDICATED WITH PRN TYLENOL FOR CO BACK PAIN. WILL ASSESS EFFECTIVENESS. PATIENT SITTING IN CHAIR. BODY ALARM IN PLACE. CALL LIGHT IN REACH.
--- NOTE | 2020-07-23 23:05 | NUR ---
REPORT GIVEN TO LAUREN MERCADO.
[2020-07-24] VITALS: BP 107/51
--- NOTE | 2020-07-24 03:18 | NUR ---
24 HR chart check completed.
[2020-07-24 06:29] LABS: BASO % 0.7 % (0.0-1.0); EOS # 0.2 10*3/uL (0.0-0.4); EOS % 2.7 % (1.0-4.0); LYMPH # 1.7 10*3/uL (1.3-4.4); LYMPH % 28.8 % (27.0-41.0); MEAN CELL VOLUME 103.7 fl (80.0-94.0); MEAN CORPUSCULAR HGB 34.9 pg (27.0-31.0); MEAN CORPUSCULAR HGB CONC 33.6 g/dl (33.0-37.0); MEAN PLATELET VOLUME 10.5 fl (9.6-12.3); MONO # 0.6 10*3/uL (0.1-1.0); MONO % 9.9 % (3.0-9.0); NEUT # 3.4 10*3/uL (2.3-7.9); NEUT % 57.6 % (47.0-73.0); PLATELET COUNT AUTOMATED 134 10*3/uL (130-400); RED BLOOD COUNT 3.47 10*6/uL (4.50-5.90); RED CELL DISTRI WIDTH 13.4 % (0-14.5); WHITE BLOOD COUNT 5.9 10*3/uL (4.8-10.8)
[2020-07-24 06:39] LABS: CHLORIDE 111 mmol/L (98-107); POTASSIUM 3.9 mmol/L (3.5-5.1); SODIUM 142 mmol/L (136-145)
[2020-07-24 06:50] LABS: ALBUMIN 2.6 gm/dl (3.1-4.5); ALKALINE PHOSPHATASE 232 U/L (45-117); BUN 24 mg/dl (7-24); CREATININE 0.93 mg/dL (0.70-1.30); SGOT/AST 48 IU/L (3-35); SGPT/ALT 47 U/L (12-78); TOTAL PROTEIN 5.7 gm/dL (6.4-8.2)
[2020-07-24 08:00] VITALS: BP 140/60
--- NOTE | 2020-07-24 08:00 | NUR ---
PT IS AWAKE AND ALERT SITTING UP IN CHAIR. NO STATED COMPLAINTS AT THIS TIME AND DENIES ANY PAIN. PT IS ORIENTED TO SELF ONLY AT THIS TIME. RESPIRATIONS ARE EASY AND REGULAR. NO SOB NOTED. PT ABLE TO REPOSITION SELF IN THE CHAIR AND IS ENCOURAGED TO DO SO. BED IN LOWEST LOCKED POSITION AND CALL LIGHT WITHIN REACH.
--- NOTE | 2020-07-24 09:23 | NUR ---
PHYSICAL THERAPY TREATMENT TIME: IN 08:05 AM 17 MINUTES TOTAL Patient presented to therapy in sitng in bedside chair with report of R LBP of 2/10. Patient has no other complaints. Patient gives informed consent for treatment. Patient was identified and on wristband. Patient STS out of bedside chair with CGA. Patient ambulated with Wh Walker and CGA - Close Supervision for 72' x 1 with no LOB and no SOB. Patient has no confusion. Patient completed 30 seconds STS test and was recorded as 7 STSs in 30 seconds from bedside chair with SBA. Patient then performed bilateral LE ther ex 2 x 10 reps each in all palnes of movement for strengthening the bilateral LE s in all planes of movement including LAQs, marches, heel/toe raises and hip abduction. Patient was left in bedside chair with chair alarm tested and attached to patient and call light within reach. Patient was 1:1 with this AIRPORT SECURITY SCREENER for 17 minutes total. RENATO CLEMONS AIRPORT SECURITY SCREENER
--- NOTE | 2020-07-24 09:30 | NUR ---
PT'S IN ROOM. CASE MANAGEMENT IN TO ROOM TO ANSWER DISCHARGE QUESTIONS. BED IN LOWEST LOCKED POSITION AND CALL LIGHT WITHIN REACH. WILL CONTINUE TO MONITOR.
--- NOTE | 2020-07-24 09:55 | NUR ---
HOPPER FEEDER SPOKE WITH PATIENT AND PATIENTS AT BEDSIDE. PATIENTS STATED SHE IS NOT GOING TO BE FILLING OUT THE MEDICAID APPLICATION BECAUSE THEY HAVE WORKED HARD FOR THEIR SAVINGS. SHE STATED SHE WOULD LIKE THE PATIENT TO BE REFERRED TO 1. [facility] 2. [facility]. HOPPER FEEDER CONTACTED [facility]. THEY ARE NOT ACCEPTING THE PATIENTS AT THIS TIME. HOPPER FEEDER REACHED OUT TO [facility] AND WILL FAX THE REFERRAL.
[2020-07-24 12:00] VITALS: BP 105/51
--- NOTE | 2020-07-24 13:02 | NUR ---
REHABILITATION CASE COORDINATOR LEFT MESSAGE FOR [facility]. REHABILITATION CASE COORDINATOR IS WANTING TO FOLLOW UP ON REFERRAL.
--- NOTE | 2020-07-24 15:00 | NUR ---
Spoke to Donna and Dr. Tyler re patient being discharged to U. Dr. Tyler will discharge patient tomorrow to [facility]. cellar worker reaching out to .
--- NOTE | 2020-07-24 15:06 | NUR ---
MAKE UP EDITOR SPOKE WITH PATIENTS ABOUT [facility]. SHE IS AGREEABLE FOR THE PATIENT TO GO TO [facility] TOMORROW MORNING 07/25/2020. LUDWIG INFORMED RISK MODELER PEPITO.
[2020-07-24 16:00] VITALS: BP 129/71
[2020-07-24 20:00] VITALS: BP 116/90
--- NOTE | 2020-07-24 20:30 | NUR ---
RESTLESS, WANDERING INTO HALLWAY. 1:1 ATTEMPTED TO REORIENT PATIENT WITH LITTLE SUCCESS. RESPIRATIONS EASY. LUNGS DIMINISHED, CLEAR. PULSE OX 96% RA. CALL LIGHT WITHIN REACH. NO VOICED COMPLAINTS
--- NOTE | 2020-07-24 20:42 | NUR ---
24 HR chart check completed.
--- NOTE | 2020-07-24 21:56 | NUR ---
PAPTIENT RESTLESS, AGITATED. PRN HALDOL PROVIDED PER PRN ORDER. WILL MONITOR
[2020-07-25] VITALS: BP 106/84
--- NOTE | 2020-07-25 | NUR ---
SLEEPING. RESPIRATIONS EASY. VSS. CALL LIGHT WITHIN REACH
--- NOTE | 2020-07-25 06:31 | NUR ---
MEDICATED WITH TYLENOL PER PRN ORDER FOR COMPLAINTS OF RIGHT UPPER THIGH PAIN RATING A 5. CALL LIGHT WITHIN REACH. WILL MONITOR
[2020-07-25 08:00] VITALS: BP 111/44
--- NOTE | 2020-07-25 08:45 | NUR ---
COMMUNITY SERVICES OFFICER LEFT MESSAGE FOR [facility] ASKING FOR A RETURN CALL.
[2020-07-25] MEDS ORDERED: RIVASTIGMINE1 EAC1 T (09:26)
--- NOTE | 2020-07-25 09:53 | NUR ---
STUDENT DEVELOPMENT DEAN SPOKE WITH THE PATIENT AND PATIENTS AT BEDSIDE. STUDENT DEVELOPMENT DEAN EXPLAINED WE ARE TRYING TO GET THIS PATIENT INTO OUR [facility] AND/OR [facility]. LUDWIG EXPLAINED WE ARE AWAITING TO HEAR FROM BOTH PLACES. SHE UNDERSTOOD. CASE MANAGEMENT TO FOLLOW.
--- NOTE | 2020-07-25 10:23 | NUR ---
BENJY DIETRICH IN TO SEE PATIENT REGARDING BHU CONSULT.
--- NOTE | 2020-07-25 10:33 | NUR ---
PER MORNING MEETING PATIENT WILL BE GETTING TRANSFERRED TO [facility] TODAY.
[2020-07-25] MEDS ORDERED: VIMPAT100 MG PO (11:32)
[2020-07-25] MEDS ORDERED: ROZEREM8 MG PO (11:33)
[2020-07-25] MEDS ORDERED: SEROQUEL25 MG PO (11:34)
[2020-07-25] MEDS ORDERED: EXELON1 EAC1 T (11:35)
[2020-07-25] MEDS ORDERED: TRILEPTAL300 MG PO (11:35)
[2020-07-25] MEDS ORDERED: HALDOL5 MG/1 ML IJ (11:39)
[2020-07-25] MEDS ORDERED: HALDOL5 MG PO (11:39)
[2020-07-25] MEDS ORDERED: TYLENOL EXTRA500 MG PO (11:41)
[2020-07-25] MEDS ORDERED: NUPLAZID34 MG PO (11:54)
[2020-07-25 12:00] VITALS: BP 90/74
--- NOTE | 2020-07-25 13:04 | NUR ---
NURSE TO NURSE REPORT GIVEN TO [facility].
--- NOTE | 2020-07-25 14:53 | NUR ---
NURSE FROM [facility] HERE TO TRANSPORT PATIENT PER ORDER. BELONGINGS WITH PATIENT.
--- NOTE | 2020-07-25 14:56 | NUR ---
DISCHARGED TO [facility] PER ORDER. DISCHARGE INFORMATION/PACKET SENT WITH PATIENT. NOTIFIED.
--- NOTE | 2020-07-26 07:59 | NUR ---
PHYSICAL THERAPY CO-SIGN I approve of the Physical Therapy notes written above. Meseret Burton PT
== END 2020-07-25 14:56 | disposition home or self-care (01) | DRG 883 ==
LOC: ED 10:39 → EDHOLD 12:45 → 5E 12:45
PROVIDERS: Counselor Professional; Emergency Medicine; Internal Medicine; ADMIT Internal Medicine; ATTEND Internal Medicine
PROC: 0HBRXZZ Excision of Toe Nail, External Approach (ICD-10-PCS; principal; 2020-07-24)
PROC: 0HBRXZZ Excision of Toe Nail, External Approach (ICD-10-PCS; 2020-07-24)
PROC: 0HBRXZZ Excision of Toe Nail, External Approach (ICD-10-PCS; 2020-07-24)
PROC: 0HBRXZZ Excision of Toe Nail, External Approach (ICD-10-PCS; 2020-07-24)
PROC: 0HBRXZZ Excision of Toe Nail, External Approach (ICD-10-PCS; 2020-07-24)
PROC: 0HBRXZZ Excision of Toe Nail, External Approach (ICD-10-PCS; 2020-07-24)
PROC: 0HBRXZZ Excision of Toe Nail, External Approach (ICD-10-PCS; 2020-07-24)
PROC: 0HBRXZZ Excision of Toe Nail, External Approach (ICD-10-PCS; 2020-07-24)
PROC: 0HBRXZZ Excision of Toe Nail, External Approach (ICD-10-PCS; 2020-07-24)
PROC: 0HBRXZZ Excision of Toe Nail, External Approach (ICD-10-PCS; 2020-07-24)
DX: F63.81 Intermittent explosive disorder (principal); F02.81 Dementia in other diseases classified elsewhere, unspecified severity, with behavioral disturbance; E44.0 Moderate protein-calorie malnutrition; G93.40 Encephalopathy, unspecified; G30.1 Alzheimer's disease with late onset; R56.9 Unspecified convulsions; R26.2 Difficulty in walking, not elsewhere classified; E11.9 Type 2 diabetes mellitus without complications; B35.1 Tinea unguium; G20 Parkinson's disease; R62.7 Adult failure to thrive; Z87.442 Personal history of urinary calculi; Z88.8 Allergy status to other drugs, medicaments and biological substances; Z79.4 Long term (current) use of insulin; Z79.899 Other long term (current) drug therapy; Z68.27 Body mass index [BMI] 27.0-27.9, adult

== ENCOUNTER 2020-07-25 11:26 | Inpatient (IN) | payer MEDICARE, OTHER ==
[~2020-07-25] VITALS: Ht 167.6 cm; Wt 77.6 kg
[~2020-07-25 11:26] MED LIST changes: +HEALTHY HEART1 EACH PO; +LANTUS SOL100 UNIT/1 SC; +RIVASTIGMINE1 EAC1 T; +SEROQUEL25 MG PO; +VIMPAT100 MG PO; +ZONEGRAN100 MG PO
[2020-07-25] MEDS ORDERED: VIMPAT100 MG PO (11:32)
[2020-07-25] MEDS ORDERED: ROZEREM8 MG PO (11:33)
[2020-07-25] MEDS ORDERED: SEROQUEL25 MG PO (11:34)
[2020-07-25] MEDS ORDERED: TRILEPTAL300 MG PO (11:35)
[2020-07-25] MEDS ORDERED: EXELON1 EAC1 T (11:35)
[2020-07-25] MEDS ORDERED: HALDOL5 MG/1 ML IJ (11:39)
[2020-07-25] MEDS ORDERED: HALDOL5 MG PO (11:39)
[2020-07-25] MEDS ORDERED: TYLENOL EXTRA500 MG PO (11:41)
[2020-07-25] MEDS ORDERED: NUPLAZID34 MG PO (11:54)
--- NOTE | 2020-07-25 13:41 | NUR ---
THIS SPOKE TO ERIC GONZALEZ, AND RECEIVED VERBAL CONSENT FOR FORMS.
--- NOTE | 2020-07-25 14:29 | NUR ---
DR. FLANAGAN NOTIFIED OF ADMISSION AND VERIFIED MEDICATIONS.
--- NOTE | 2020-07-25 14:58 | NUR ---
ALEX STONE a 80 year old M admitted via wheel chair from the ADMITTING as a voluntary admission BY LISA. Arrived on unit at 1458. ALLERGIES: HALDOL AND FENTANYL. Vital signs are: 98.9, 136/77, 90, 16, 97%RA The client signed the following forms with stated understanding: Authorization For The Release of Medical Information, Clothing List, Consent to Voluntary Admission and Hospitalization, Consent and Release Forms/Receipt of Rights, Acknowledgement of Advance Directive Information, Behavioral Health Consent Form, and Informed Consent of Medications. Admitted under the services of ALEX Navas MD. A search was conducted and hazardous articles were removed. Client was oriented to the unit. PATIENT IS ALERT TO PERSON AND PLACE WITH CONFUSION; ABLE TO VOICE NEEDS. MOOD IS STABLE. AWARE OF HAVING PROBLEMS WITH MEMORY. ADMITS TO HAVING AUDITORY AND VISUAL HALLUCINATIONS BUT NOT TODAY. IN THE PAST HE THOUGHT HE SAW HIS BROTHER WHO HAD PAST YEARS AGO. DENIES HI/SI OR PAIN. AMBULATES WITH WALKER WITH STEADY GAIT. COOPERATIVE WITH SKIN/ADMISSION ASSESSMENT. NASAL SWAB COLLECTED FOR COVID AND SENT TO LAB. LYNNE ODONNELL
[2020-07-25 15:07] VITALS: BP 136/77
--- NOTE | 2020-07-25 15:14 | NUR ---
PHYSICAL THERAPY TREATMENT TIME: IN 2:10 PM 20 MINUTES TOTAL. Patient presented to therapy in standing by bedside chair and report of no pain or other complaints. Patient gives informed consent for treatment. Patient was identified by name and on wristband. Patient performed ambulation with Wh Walker and Close Supervision for 224' x 1 with no LOB and no SOB. Patient then sat in bedside chair and completed Bilateral LE ther ex 2 x 10 reps each in all planes of movement for strengthening the LES in order to improve patient's functional mobility. Patient STS out of bedside chair with SBA - CGA. Patient does very well overall. Patient was left in bedside chair with call ligth within reach and chair alarm attached to patient. Patient's tray table near patient. Patient was 1:1 with this ELECTRICAL ASSEMBLY TECHNICIAN for 20 minutes total. RENATO CLEMONS ELECTRICAL ASSEMBLY TECHNICIAN
[2020-07-25 19:52] VITALS: BP 122/61
--- NOTE | 2020-07-25 23:30 | NUR ---
P: PATIENT IS CONFUSED. I: 1:1 FOR EMOTIONAL SUPPORT PROVIDED. REDIRECT AND REORIENT NEEDED, ALLOW PATIENT TO VERBALIZE FEELINGS. R: PATIENT PLEASANTLY CONFUSED. PATIENT IS ALERT TO PERSON AND PLACE. PATIENTS MOOD IS STABLE. PATIENT DENIES SI/HI. PATIENT DENIES ANY HALLUCINATIONS OR DELUSIONS AND DOES NOT APPEAR TO BE RESPONDING TO ANY INTERNAL STIMULI. PATIENT IS CALM. PATIENT IS INTERACTING WITH PEERS AND STAFF. PATIENT HAS GOOD INTAKES WITH [place]DEQAUTE FLUIDS. PATIENT HAS STEADY GAIT WITH USE OF WALKER. PATIENT IS MEDICATION COMPLIANT WITH EDUCATION. P: WILL CONTINUE TO MONITOR FOR MOODS/BEHAVIORS. Q 15 MINUTE SAFETY CHECKS MAINTAINED. WILL CONTINUE TO ENCOURAGE MEDICATION COMPLIANCE.
[2020-07-26 01:08] LABS: BILIRUBIN Negative (Negative); BLOOD Negative (Negative); CLARITY Clear (Clear); COLOR Yellow (Yellow); GLUCOSE 3+ (Negative); KETONE Negative (Negative); LEUKO ESTERASE Negative (Negative); NITRITE Negative (Negative); SPECIFIC GRAVITY >= 1.030 (1.001-1.030); UROBILINOGEN 0.2 E.U./dl (0.0-1.0)
[2020-07-26 01:31] LABS: RBC 0-2 rbc/hpf (0-2); WBC 0-2 wbc/hpf (0-5)
--- NOTE | 2020-07-26 02:06 | NUR ---
PATIENT RESTING COMFORTABLY IN BED. Q 15 MINUTE SAFETY CHECKS MAINTAINED.
--- NOTE | 2020-07-26 03:26 | NUR ---
PATIENT CONTINENT OF BOWEL AND BLADDER AT THIS TIME. PATIENT BACK TO BED IN HOSPITAL GOWN AND PANTS. Q 15 MINUTE SAFETY CHECKS MAINTAINED.
--- NOTE | 2020-07-26 05:50 | NUR ---
PATIENT SLEPT PAST 23:45. 24 HOUR CHART CHECK COMPLETE.
[2020-07-26 06:12] LABS: BASO % 0.6 % (0.0-1.0); EOS # 0.1 10*3/uL (0.0-0.4); HEMATOCRIT 37.1 % (42.0-52.0); LYMPH # 0.8 10*3/uL (1.3-4.4); LYMPH % 14.8 % (27.0-41.0); MEAN CELL VOLUME 103.6 fl (80.0-94.0); MEAN CORPUSCULAR HGB 34.6 pg (27.0-31.0); MEAN CORPUSCULAR HGB CONC 33.4 g/dl (33.0-37.0); MEAN PLATELET VOLUME 10.4 fl (9.6-12.3); MONO # 0.5 10*3/uL (0.1-1.0); MONO % 8.9 % (3.0-9.0); NEUT % 73.5 % (47.0-73.0); PLATELET COUNT AUTOMATED 125 10*3/uL (130-400); RED BLOOD COUNT 3.58 10*6/uL (4.50-5.90); RED CELL DISTRI WIDTH 13.3 % (0-14.5); WHITE BLOOD COUNT 5.4 10*3/uL (4.8-10.8)
[2020-07-26 06:28] LABS: ALBUMIN 2.7 gm/dl (3.1-4.5); BUN 17 mg/dl (7-24); CHLORIDE 110 mmol/L (98-107); CHOLESTEROL 153 mg/dL (<200); HDL CHOLESTEROL 59 mg/dl (40-60); LDL CHOLESTEROL 77 mg/dL (9-159); SGOT/AST 57 IU/L (3-35); SGPT/ALT 57 U/L (12-78); SODIUM 142 mmol/L (136-145); TOTAL PROTEIN 6.2 gm/dL (6.4-8.2); TRIGLYCERIDES 87 mg/dl (<150); VLDL CHOLESTEROL 17 mg/dL (6-40)
[2020-07-26 06:35] LABS: ALKALINE PHOSPHATASE 250 U/L (45-117)
--- NOTE | 2020-07-26 07:55 | NUR ---
PHYSICAL THERAPY PT screen and eval received will continue to follow. Jayy Ellison SPT Carlos Burton PT
--- NOTE | 2020-07-26 07:57 | NUR ---
Nursing screen received and occupational therapy referral received. Thank you. Johanne Andino OTR/L
[2020-07-26 07:58] VITALS: BP 104/54
[2020-07-26 08:41] LABS: VITAMIN D, 25-HYDROXY 35.7 ng/mL (30-100)
[2020-07-26 08:51] VITALS: BP 122/54
--- NOTE | 2020-07-26 09:00 | NUR ---
MARCO ESTRELLA CNP ON UNIT TO ASSESS PATIENT.
--- NOTE | 2020-07-26 09:00 | NUR ---
Treatment Plan meeting was held this a.m. with Dr. Aragon, AGUSTINA Kurtz, RN, AT, HEATING REPAIR TECHNICIAN-S and I O Psychologist in attendance. Plan for discharge is unclear at this time. Pt. had requested Placement. Pt. was referred on the Medical Floor to [facility] which is Pending. PASRR will need Completed. Therapy will need to Evaluate Pt. for SNF needs.
--- NOTE | 2020-07-26 09:38 | NUR ---
Occupational Therapy evaluation completed on 3 with full eval to follow. Precautions include fall risk; new ww use, impaired memory and orientation to time, 3N unit precautions, low complexity level 31875. Recommend home w/ 24 hr supervision and assist with new wheeled walker use. No further OT indicated at this time. Thank you. Johanne Andino OTR/l
--- NOTE | 2020-07-26 09:38 | NUR ---
PHYSICAL THERAPY Physical Therapy evaluation completed on 3N with full evaluation to follow. Low complexity skilled PT evaluation per chart review and evaluation, [id number]. Recommend physical therapy per plan of care and Home Health with 24hr supervision and assist upon discharge. Thank you for this referral. Lakshmi Wright,PT,DPT
--- NOTE | 2020-07-26 10:00 | NUR ---
DR. FLANAGAN ON UNIT TO ASSESS PATIENT.
--- NOTE | 2020-07-26 11:46 | NUR ---
AM GROUP PT DID NOT ATTEND MORNING GROUP THERAPY. PT WAS IN BED RESTING.
--- NOTE | 2020-07-26 13:09 | NUR ---
CALL PLACED TO BENJY DIETRICH [facility]- REGARDING PRN MEDICATION ORDERS. PER BENJY PT IS NOT TO TAKE HALDOL D/T [place]SONS BUT PT MAY HAVE PRN ATIVAN 1MG PO/IM Q4H PRN ANXIETY/AGITATION AND PRN GEODON 10MG IM Q4H PRN ANXIETY AGITATION NTE 3/24 HOURS. ORDERS READ BACK AND VERIFIED. WITNESSED BY 2ND RN REKHA.JUANA.
--- NOTE | 2020-07-26 13:47 | NUR ---
Left a voicemail message for pt's Oanh requesting a return call to gather further pt information and to discuss discharge needs.
--- NOTE | 2020-07-26 14:32 | NUR ---
P- CONFUSION, MEMORY GAPS, MILD IRRITABILITY THIS AFTERNOON I- ORIENTATION, MOOD AND BEHAVIORS ASSESSED. ASSESSED PT FOR SI/HI, INTENT OR PLAN. ASSESSED PT FOR S/S HALLUCINATIONS, PARANOIA AND/OR DELUSIONS. MEDICATIONS ADMINISTERED PER PHYSICIANS ORDERS. ASSISTANCE WITH ADL CARE PROVIDED NEEDED. ENCOURAGED PT TO ATTEND AND PARTICIPATE IN SOTO MILIEU. R- PT IS ALERT AND ORIENTED TO PERSON AND PLACE. APPROXIMATE TIME. NOT ORIENTED TO SITUATION. MEMORY GAPS NOTED. RESPS EASY AND EVEN ON ELVA AIR. MOOD STABLE, PLEASANT THIS AM. MILD IRRITABILITY NOTED THIS AFTERNOON PT WAS CONVINCED HE NEEDED TO CALL HIS TO COME PICK HIM UP. AFTER MUCH VERBAL REDIRECTION AND 1:1 WITH BANANA RIPENING ROOM SUPERVISOR PT CALM AND RESTING QUIETLY IN BED AT THIS TIME WITHOUT NEED FOR FURTHER INTERVENTION. PT DENIES SI/HI, INTENT OR PLAN. PT DENIES HALLUCINATIONS, NO RESPONSE TO INTERNAL STIMULI NOTED. NO PARANOIA OR DELUSIONS NOTED. MEDICATION COMPLIANT WITHOUT DIFFICULTY. NO DISTRESS NOTED. P- PLAN TO CONTINUE CURRENT TREATMENT, CONTINUE TO MONITOR MOOD AND BEHAVIORS. PROVIDE APPROPRIATE REORIENTATION AND REDIRECTION NEEDED. CONTINUE TO ENCOURAGE MEDICATION COMPLIANCE WELL GROUP ATTENDANCE AND PARTICIPATION.
--- NOTE | 2020-07-26 15:40 | NUR ---
PM GROUP PT DID NOT ATTEND AFTERNOON GROUP THERAPY. PT WAS ENCOURAGED TO ATTEND BUT STATED, "I NEED TO LAY DOWN BECAUSE MY LEG HURTS"
[2020-07-26 19:59] VITALS: BP 119/57
--- NOTE | 2020-07-27 01:15 | NUR ---
P-CONFUSED. I-ASSESSED ORIENTATION, MOOD AND BEHAVIORS. 1:1 EMOTIONAL SUPPORT PROVIDED, REDIRECTION AND REORIENTATION PROVIDED. ADMINISTERED MEDICATIONS PER PHYSICIANS ORDERS AND PROVIDED EDUCATION. ADLS X1 ASSIST. EDUCATED ON SAFETY PRECAUTIONS; USING WALKER AT ALL TIMES AND USING CALL LIGHT. R-PT ALERT TO SELF AND APPROX PLACE. MOOD STABLE. NO RESPONSE TO INTERNAL STIMUILI NOTED. THERAPEUTIC INTERVENTIONS EFFECTIVE. MEDICATION COMPLIANT. PT NON-COMPLIANT WITH SAFETY MEASURES. P-WILL CONTINUE TO MONITOR MOODS AND BEHAVIORS. CONTINUE TO EDUCATE ON USE OF SAFETY DEVICES. Q 15 MIN CHECKS MAINTAINED AND PRN.
--- NOTE | 2020-07-27 03:45 | NUR ---
ASSISTED X1 STAFF TO TOILET, CONTINENT OF URINE. EDUCATED ON IMPORTANCE OF SAFETY DEVICES; CALL LIGHT AND WALKER. PT VERBALIZED UNDERSTANDING AND DEMONSTRATED USE. RESTING IN BED AT THIS TIME.
--- NOTE | 2020-07-27 06:10 | NUR ---
PT SLEPT 8 HOURS WITH BRIEF AWAKENING FOR TOILETING. 24 HR chart check completed.
[2020-07-27 07:21] VITALS: BP 134/55
--- NOTE | 2020-07-27 08:06 | NUR ---
Patient resting quietly with no c/o discomfort. Respirations easy and regular. Vital signs stable. No overt distress. LAKISHA TAPIA
--- NOTE | 2020-07-27 09:21 | NUR ---
Family meeting held via phone with pt's Oanh. Discussed pt's behaviors while at home prior to [facility] admission. Discussed discharge plan. Oanh would like pt to discharge to [place] for SNF with the long-term plan of pt returning home. Educated Oanh about Medicare requirements for SNF.
--- NOTE | 2020-07-27 09:45 | NUR ---
PHYSICAL THERAPY Patient seen this am for therapy visit and was relaxing supine in bed upon therapist arrival. Patient identified by name / and reports no c/o's pain while at rest lying down, however 4/10 during all standing activities. Patient transfers supine to sit EOB, then sit to stand with SBA x 1, with use of walker standing support. Patient demonstrates POOR upright posture, with forward head posture and rounded shoulders. Patient received education - v/c to improve posture and voiced mild reduction in standing pain c/o 3/10. Patient ambulates with Supervision, walker, ad freddie in hallway, > 200'x 1, demonstrating slow, steady anthony. Patient very cautious during all 90/180 turns and no LOB this session. Patient returned to supine in bed and remained with bed alarm activated, under [facility] staff Supervision. Will continue per POC as tolerated, total treatment time 18 minutes. Amando Lackey, RETREADER
--- NOTE | 2020-07-27 10:30 | NUR ---
Treatment Plan meeting was held this a.m. with Dr. Aragon RN, ASSOCIATE DIRECTOR QA-S and Tape Controlled Machine Stitcher in attendance. Plan for discharge Next Week. Pt. is for Placement. Pt. requires [facility] submission and Will follow with [facility] today. Pt. was referred on the Medical Floor.
--- NOTE | 2020-07-27 11:37 | NUR ---
AM GROUP PT DID NOT ATTEND MORNING GROUP THERAPY. PT CHOSE TO STAY IN BED.
--- NOTE | 2020-07-27 13:00 | NUR ---
Refaxed Referral to [facility] Attn: Concepcion [phone]. Spoke with Concepcion at [facility]. Provided with updates and Discharge Plans for Next Week.
--- NOTE | 2020-07-27 14:48 | NUR ---
PASRR Completed online in [facility]. Requires further review. Faxed Supporting information to [facility] for further review .
--- NOTE | 2020-07-27 15:28 | NUR ---
PM GROUP PT DID NOT ATTEND AFTERNOON GROUP THERAPY. PT WAS IN BED RESTING.
[2020-07-27 19:11] VITALS: BP 128/56
--- NOTE | 2020-07-27 22:49 | NUR ---
P-CONFUSED; MEMORY DEFICITS NOTED. I-ASSESSED ORIENTATION, MOOD AND BEHAVIORS. 1:1 EMOTIONAL SUPPORT PROVIDED, REDIRECTION AND REORIENTATION PROVIDED. ADMINISTERED MEDICATIONS PER PHYSICIANS ORDERS AND PROVIDED EDUCATION. HS SNACK AND FLUIDS ACCEPTED. ADLS X1 ASSIST. EDUCATED ON SAFETY PRECAUTIONS; USING WALKER AT ALL TIMES AND USING CALL LIGHT. R-PT ALERT TO SELF AND APPROX PLACE. MOOD STABLE. NO RESPONSE TO INTERNAL STIMUILI NOTED. THERAPEUTIC INTERVENTIONS EFFECTIVE. MEDICATION COMPLIANT. PT NON-COMPLIANT WITH SAFETY MEASURES. P-WILL CONTINUE TO MONITOR MOODS AND BEHAVIORS. CONTINUE TO EDUCATE ON USE OF SAFETY DEVICES. Q 15 MIN CHECKS MAINTAINED AND PRN.
--- NOTE | 2020-07-28 06:23 | NUR ---
PT SLEPT 6 HOURS INTERRUPTED. 24 HR chart check completed.
[2020-07-28 07:27] VITALS: BP 126/71
--- NOTE | 2020-07-28 08:25 | NUR ---
PT C/O LOWER BACK PAIN 05/18. PT MEDICATED WITH TYLENOL 650 MG PO PRN PER ORDERS. WILL CONTINUE TO MONITOR.
--- NOTE | 2020-07-28 08:47 | NUR ---
PHYSICAL THERAPY TREATMENT TIME: OUT 07:28 AM 20 MINUTES TOTAL Patient presented ot therapy in supine with head of bed flat and bed alarm on. Patient reports LBP 5/10. Patient gives informed consent for treatment. Patient was identified by name and on wristband. Patient performed supine <> sititng on EOB with SBA. Patient sat on EOB with Supervision. Patient STS <> EOB with SBA. Patient ambulated with Wh Walker and Close Supervision for 300' x 1 with no LOB or other difficulty. Patient performed sitting brooke LE ther ex 2 x 10 reps each including LAQs, marches and heel/toe raises for strengthening the LES IN ORDER TO IMPROVE PATIENT'S FUNCTIONAL MOBILITY. Patient was left in chair at table in activity room with U staff present and other patients present. Patient was 1:1 with this FOREIGN BROADCAST SPECIALIST for 20 minutes total. RENATO CLEMONS FOREIGN BROADCAST SPECIALIST
--- NOTE | 2020-07-28 09:00 | NUR ---
Treatment Plan meeting was held this a.m. with AGUSTINA Kurtz, RN, AT, EXTRACTOR OPERATOR SOLVENT PROCESS-S and Environmental Emergencies Assistant in attendance. Plan for discharge Next Week. Pt. has been referred to [facility] and [facility] is Pending.
--- NOTE | 2020-07-28 10:36 | NUR ---
PHYSICAL THERAPY CO-SIGN I approve of the Physical Therapy notes written above. PEPITO STEPHENS PT,DPT
--- NOTE | 2020-07-28 10:53 | NUR ---
P- CONFUSION, MEMORY DEFICITS, ISOLATIVE, IRRITABILITY NOTED WHEN PT WAS REDIRECTED HE BELIEVED HE WAS BEING DISCHARGED AND PICKED UP IN HALF HOUR THIS MORNING. I- ORIENTATION, MOOD AND BEHAVIORS ASSESSED. ASSESSED PT FOR SI/HI, INTENT OR PLAN. ASSESSED PT FOR S/S HALLUCINATIONS, PARANOIA AND/OR DELUSIONS. MEDICATIONS ADMINISTERED PER PHYSICIAN'S ORDERS. ASSISTANCE WITH ADL CARE PROVIDED NEEDED. ENCOURAGED PT TO ATTEND AND PARTICIPATE IN SOTO MILIEU GROUPS AND ACTIVITIES. R- PT IS ALERT AND ORIENTED TO PERSON ONLY. PT IS OTHERWISE CONFUSED WITH MEMORY DEFICITS NOTED. PT STATED THIS MORNING HE BELIEVED HE WAS IN [place]. PT STATES TO THIS RN "IF SOMEONE CAN JUST GET ME HOME TO [place], [place]. I'M IN [facility] NOW BUT I GREW UP IN [place], [place] AND I HAVE A HOUSE ON January". REORIENTATION PROVIDED. PT STATES "OH YEAH. SOME MANDY TOLD ME THAT THE OTHER DAY AND THEN HE LAUGHED AT ME". EMOTIONAL SUPPORT PROVIDED. A FEW MOMENTS LATER PT AGAIN STATES HE BELIEVES HE IS IN [place], REORIENTATION EFFECTIVE FOR ONLY SHORT PERIODS OF TIME. PT ADMITS TO FEELING DEPRESSED AT TIMES. PT DENIES SI/HI, INTENT OR PLAN. PT DENIES HALLUCINATIONS, NO RESPONSE TO INTERNAL STIMULI NOTED. MEDICATION COMPLIANT WITHOUT DIFFICULTY. PT DID BECOME IRRITABLE AFTER A PHONE CALL WITH HIS PT CAME TO THE DESK AND STATED HIS WOULD BE PICKING HIM UP TO TAKE HIM HOME IN 30 MINUTES. REORIENTED AND REDIRECTED PT AT THIS TIME. PT BECAME IRRITABLE AND STATES "WELL, IF I DON'T GET OUT OF HERE IN 30 MINUTES YOU'LL BE SORRY". PT'S PHONED UNIT AND RN PROVIDED UPDATE. PT REDIRECT TO ROOM AND HAS SINCE CALMED HIMSELF WITHOUT NEED FOR FURTHER INTERVENTION. TYLENOL FOR BACK PAIN GIVEN EARLIER THIS MORNING APPEARS EFFECTIVE. PT VOICES NO FURTHER COMPLAINTS. NO PHYSICALLY AGGRESSIVE BEHAVIORS DISPLAYED. NO DISTRESS NOTED. P- PLAN TO CONTINUE CURRENT TREATMENT. CONTINUE TO MONITOR MOOD AND BEHAVIORS, PROVIDE APPROPRIATE REORIENTATION AND REDIRECTION NEEDED. CONTINUE TO ENCOURAGE MEDICATION COMPLIANCE WELL GROUP ATTENDANCE AND PARTICIPATION.
--- NOTE | 2020-07-28 11:54 | NUR ---
AM GROUP PT DID NOT ATTEND MORNING GROUP THERAPY. PT WAS IN BED RESTING.
--- NOTE | 2020-07-28 13:28 | NUR ---
DR FLANAGAN ON UNIT TO ASSESS PT, UPDATE PROVIDED.
--- NOTE | 2020-07-28 16:45 | NUR ---
PRN TYLENOL 1000MG PO GIVEN AT THIS TIME, PT C/O LOW BACK PAIN RATED LEVEL 8/10 WITH MOVEMENT. PT STATES IT FEELS BETTER WHEN HE LAYS DOWN. PT TALKING WITH THIS RN AND STARTED TO BECOME TEARFUL, PT THEN SHOOK HIS HEAD AND STATES "GOSH. I'M SORRY. I HATE TO BE SO WEAK BUT EVIDENTLY ERIC DOESN'T LOVE ME ANYMORE BECAUSE SHE ISN'T HERE, I HAVEN'T SEEN HER". EMOTIONAL SUPPORT PROVIDED. REMINDED PT HE WAS IN THE HOSPITAL AND WHY. ASSURED PT HIS CARED FOR HIM AND HAD CALLED TO CHECK ON HIM AND TALK WITH HIM EARLIER. PT STATES "OH YEAH. I REMEMBER". REMINDED PT VISTATION WAS RESTRICTED D/T COVID. PT VERBALIZED UNDERSTANDING. PT CALMED WITH 1:1. WILL MONITOR FOR MEDICATION EFFECT.
--- NOTE | 2020-07-28 20:00 | NUR ---
Patient resting quietly with no c/o discomfort. Respirations easy and regular. Vital signs stable. No overt distress. LAKISHA TAPIA
[2020-07-28 20:03] VITALS: BP 114/57
--- NOTE | 2020-07-29 03:00 | NUR ---
The patient has no complaints and is resting comfortably. LAKISHA TAPIA
--- NOTE | 2020-07-29 05:17 | NUR ---
PT IS CONFUSED. UP AND DOWN OOB T/O NIGHT. FALL RISK REORIENTED, REDIRECTED, EDUCATED DIRECTOR OF USER EXPERIENCE DON'T FALL POLICY, EDUCATED ON USE OF CALL LIGHT, POC, MEDICATIONS. PT IS SOMEWHAT RECEPTIVE TO ORIENTATION, STATING THAT "I KNEW THAT". PT COMPLIANT WITH FALL PRECAUTIONS T/O NIGHT USING CALL LIGHT TO ASK FOR ASSISTANCE TO BATHROOM. PERSONAL HYGIENE CARE PROVIDED, PT USES W/W WITH 1 ASSIST FOR AMBULATION, GAIT UNSTEADY. PT VERBALIZES UNDERSTANDING OF MEDICATIONS. WILL CONTINUE TO REORIENT APPROPRIATE. WILL CONTINUE TO ASSIST PT WITH ADLs APPROPRIATE. FALLING STAR PROGRAM MAINTAINED. Q15 MIN MONITORING PER POLICY.
--- NOTE | 2020-07-29 06:29 | NUR ---
PT BSG 60. PROVIDED PT WITH 4OZ ORANGE JUICE AT THIS TIME. PT IS ALERT AND ASYMPTOMATIC AT THIS TIME.
--- NOTE | 2020-07-29 06:38 | NUR ---
PT SLEPT 5 HOURS INTERRUPTED.
--- NOTE | 2020-07-29 06:43 | NUR ---
BSG 68 AT THIS TIME. PT ASSISTED TO DINING AREA TO HAVE SNACK INCLUDING YOGURT, COTTAGE CHEESE, AND 4 OZ ORANGE JUICE
--- NOTE | 2020-07-29 06:43 | NUR ---
PT SLEPT 5 INTERRUPTED HOURS
--- NOTE | 2020-07-29 06:50 | NUR ---
PT PROVIDED WITH TYLENOL 1000MG PO PER PRN ORDER AT PT REQUEST FOR C/O BACK PAIN.
--- NOTE | 2020-07-29 06:53 | NUR ---
pt bsg 91 at this time
[2020-07-29 07:34] VITALS: BP 120/61
[2020-07-29 19:13] VITALS: BP 128/56
--- NOTE | 2020-07-29 20:07 | NUR ---
Patient reported right hip and right leg pain, 8/10 pain scale. Adminisered PRN Tylenol 1000mg.
--- NOTE | 2020-07-29 21:25 | NUR ---
Patient reports continual discomfort to right side. Patient is resting in bed at this time.
--- NOTE | 2020-07-30 05:26 | NUR ---
Patient slept for approx 5 hours during shift. Patient awoke several times throughout night confused and asking for his /mother. Patient was reoriented and assisted back to bed. Patient had no further complaints of right hip and leg pain.
[2020-07-30 07:05] VITALS: BP 110/65
[2020-07-30 18:32] VITALS: BP 108/64
--- NOTE | 2020-07-31 05:47 | NUR ---
Patient was pleasant and greeted nurse at beginning of shift. Patient recieved call from and went to bed. Patient had no complaints of pain or discomfort. Patient reported he feels better and going home soon. Patient sleep approx. 4 hours total awakening intermittently through night. Patient was able to be redirected to return to bed. Safety precautions in place and maintained.
[2020-07-31 07:30] VITALS: BP 120/66
--- NOTE | 2020-07-31 08:33 | NUR ---
PHYSICAL THERAPY TREATMENT TIME: IN 07:25 AM 17 MINUTES TOTAL Patient presented to therapy in supine with head of bed falt and no bed alarm. Patient reports no pain. Patient gives informed consent for treatment. Patient was identified by name and on wristband. Patient performed supine to sitting on EOB with SBA. Patient sat on EOB with Supervision. Patient STS <> EOB with SBA. Gait with Wh Walker and CGA for 200' x 1 with no LOB and no SOB. Patient performed STS from low chair with SBA. Patient performed LAQs in sititng in chair 2 x 10 reps each for strengthening. Patient was left in chair with table and breakfast in front of him with U staff and other patient's present. ANNETTA Alvarez PRESENT WITNESS TO THIS TREATMENT. Patient was 1:1 with this HEALTH ANALYST for 15 minutes total. RENATO CLEMONS HEALTH ANALYST
--- NOTE | 2020-07-31 09:25 | NUR ---
Treatment team held this AM with Luna Monson PUBLIC WEIGHER, hospice volunteer coordinator and this STAPLE FIBER WASHER-S. Tentative discharge plan is for pt to discharge to [facility] for SNF this week.
--- NOTE | 2020-07-31 12:53 | NUR ---
Faxed pt update to Concepcion at [facility].
[2020-07-31 19:01] VITALS: BP 151/64
--- NOTE | 2020-08-01 05:19 | NUR ---
Patient slept well throughout night with no interuptions. Safety maintained.
[2020-08-01 08:00] VITALS: BP 122/58
--- NOTE | 2020-08-01 08:15 | NUR ---
PT AWAKE, ALERT AND VERBAL. FED SELF BREAKFAST. BSG 75- NO S/S DIABETIC IMBALANCE, ATE 100% OF BREAKFAST INCLUDING ORANGE JUICE. PT WITH NO COMPLAINTS. AMA PMHNP- ON UNIT TO SEE PT.
--- NOTE | 2020-08-01 08:57 | NUR ---
PHYSICAL THERAPY TREATMENT TIME: OUT 07:10 AM 15 MINUTES Patient presented to therapy in sitting in chair in activity room with tray table in front of him. Patient gives informed consent for treatment. Patient was identified by name and on wristband. Patient performed STS from chair with SBA. Patient ambulated 220' x 1 with Wh Walker and Close Supervision with no LOB or other difficulty. Patient then sat in chait in activity room and completed LAQs, marches, heel/toe raises and hip abduction x 10 reps each for strengthening. Patient was completed 5 Xs STSs from low chair with SBA. Patient was left in chair in activity room with tray table in front of him and [facility] staff present. ANNETTA QUIJANO was present as witness to this patient treatment. RENATO CLEMONS NAT INSTRUCTOR
--- NOTE | 2020-08-01 10:37 | NUR ---
ON UNIT TO SEE PT AT THIS TIME. VIMPAT ORDER RENEWED.
--- NOTE | 2020-08-01 11:37 | NUR ---
AM GROUP PT DID NOT ATTEND MORNING GROUP THERAPY. PT WAS IN BED RESTING.
--- NOTE | 2020-08-01 12:15 | NUR ---
PATIENT COMPLAINING OF LOWER BACK PAIN, RATING5/10. PRN TYLENOL 1000MG PO GIVEN PER REQUEST.
--- NOTE | 2020-08-01 13:15 | NUR ---
NO FURTHER COMPAINTS OF PAIN. PRN TYLENOL EFFECTIVE.
--- NOTE | 2020-08-01 15:34 | NUR ---
PM GROUP PT ATTENDED AFTERNOON GROUP THERAPY AND PARTICIPATED BY PAINTING WITH WATERCOLORS, LISTENING TO MUSIC AND SOCIALIZING WITH THIS PAN TANK WORKER. PT WAS VERY PLEASANT AND EXHIBITED NO ADVERSE BEHAVIORS OTHER THAN SLIGHT MEMORY GAPS.
--- NOTE | 2020-08-01 15:38 | NUR ---
Patient was pleasantly confused during interaction with this entry writer. No hallucinations or delusions were voiced by the pt to this entry writer.
--- NOTE | 2020-08-01 16:04 | NUR ---
Clinical Updatates faxed to [facility].
--- NOTE | 2020-08-01 16:18 | NUR ---
PT ALERT AND ORIENTED TO PERSON AND PLACE. PLEASANTLY CONFUSED. RESPS EASY AND EVEN ON ROOM AIR. MOOD STABLE. AFFECT APPROPRIATE. ABLE TO MAKE NEEDS KNOWN WITHOUT DIFFICULTY. PT DENIES SI/HI, INTENT OR PLAN. PT DENIES HALLUCINATIONS AND NONE ARE NOTED. NO DELUSIONS OR PARANOIA NOTED. PT IS MEDICATION COMPLIANT WITHOUT DIFFICULTY. NO ADVERSE MOODS OR BEHAVIORS. NO DISTRESS NOTED. PT OFFERS NO COMPLAINTS. PLAN TO CONTINUE CURRENT TREATMENT.
[2020-08-01 20:00] VITALS: BP 130/80
--- NOTE | 2020-08-01 22:21 | NUR ---
PT ALERT AND ORIENTED TO SELF. PLEASANTLY CONFUSED. MOOD STABLE. NO HALLUCINATIONS OR DELUSIONS NOTED. CALM, COOPERATIVE AND INTERACTIVE WITH STAFF. MEDICATION COMPLIANT AND EDUCATION PROVIDED. HS SNACK AND FLUIDS PROVIDED. PT ABLE TO MAKE NEEDS KNOWN WITHOUT DIFFICULTY. PT EDUCATED ON USE OF SAFETY DEVICES, USING WALKER AT ALL TIMES AND CALL LIGHT. Q 15 MIN CHECKS MAINTAINED AND PRN.
--- NOTE | 2020-08-02 05:56 | NUR ---
PT SLEPT 6.5 HOURS INTERRUPTED. PT REMAINS RESTING IN BED AT THIS TIME.
[2020-08-02 07:24] VITALS: BP 115/63
--- NOTE | 2020-08-02 08:12 | NUR ---
PHYSICAL THERAPY TREATMENT TIME: IN 07:10 AM - OUT 07:26 AM 16 MINUTES TOTAL Patient presented to therapy in supine in bed with head of bed flat and bed alarm on. Patient gives informed consent for treatment. Patient was identified by name and on wristband. Patient performed supine <> sit on EOB with SBA. Patient sat on EOB with SBA. Patient completed STS from EOB with SBA. Patient ambulated with Wh Walker and CGA for 200' x 1 with no LOB and no SOB. Patient performed 30 sec STS test from low chair and this test was recorded as 12 STSs in 30 seconds time with use of UEs to push off the armrests of chair. Patient performed seated Bilateral LE ther ex 2 x 10 reps each in all planes of movement, including LAQs, marches, heel/toe raises and Hip abduction for strengthening the LEs in order to improve patient's functional mobility. Patient was left in sitting in low chair in activity room with [facility] staff present and tray table in front of him. Patient was 1:1 with this MAMMALOGY TEACHER for 16 minutes total time. RENATO CLEMONS MAMMALOGY TEACHER
--- NOTE | 2020-08-02 08:25 | NUR ---
Assisted pt with setting his breakfast up. Pt was very pleasant. No delusions or hallucinations were noted in pt during conversation.
--- NOTE | 2020-08-02 08:26 | NUR ---
Extensive conversation with pt's Oanh. Informed her that [facility] seems to be struggling with new admissions due to a staffing shortage. Discussed other local SNFs as pt is doing so well and is not in need of a locked dementia unit. Oanh would like a referral made to [facility] in [place]. Oanh is also considering having pt return directly home. She requested that the cost for pt's meds be verified to assist in her decision.
--- NOTE | 2020-08-02 09:00 | NUR ---
Treatment Plan meeting was held this a.m. with AGUSTINA Kurtz RN. AT, FABRIC PATTERN GRADER#-S and Soap Maker in attendance. Plan for discharge Next Week. would like referral to [facility].
--- NOTE | 2020-08-02 09:34 | NUR ---
PT AWAKE, ALERT AND VERY PLEASANT THIS AM. ATE BREAKFAST IN DINING ROOM, CONVERSED APPROPRIATELY WITH STAFF AND PEERS. PT THEN REQUESTED TO GO LAY DOWN IN ROOM FOR A WHILE. PT CURRENTLY RESTING QUIETLY IN BED WITH EYES CLOSED. NO DISTRESS NOTED. Q15 MIN MONITORING CONTINUES PER POLICY.
--- NOTE | 2020-08-02 10:24 | NUR ---
DR FLANAGAN ON UNIT TO ASSESS PT, UPDATE PROVIDED.
[2020-08-02] MEDS ORDERED: SINEMET 10-1001 EACH PO (10:28)
--- NOTE | 2020-08-02 10:31 | NUR ---
ON UNIT TO SEE PT AT THIS TIME. DISCUSSED PT HAD BEEN TAKING SINEMET 10/100MG ONE TAB PO BID AT HOME, HOWEVER, THIS MEDICATION HAD NOT BEEN CONTINUED IN THE HOSPITAL SO PT HAS NOT BEEN RECIEVING IT. STATES TO CONTINUE SINEMET 10/100MG PO TID AND MONITOR PT RESPONSE. WITNESSED BY 2ND RN REKHA.[email or web address].
--- NOTE | 2020-08-02 11:10 | NUR ---
Referral to [facility]. Spoke with Phyllis Reed at facility and notified her that Pt. herminio is requiring SNF at this time short term and is stable with Plan to discharge Next Week.
--- NOTE | 2020-08-02 12:37 | NUR ---
P- PLEASANTLY CONFUSED. QUESTIONABLE DELUSIONAL STATEMENT I- PSYCHIATRIC ASSESSMENT COMPLETED. MEDICATIONS GIVEN ORDERED. MONITORED PT FOR RESPONSE. EDUCATION PROVIDED. SAFETY MEASURES MAINTAINED. ASSISTANCE WITH ADL CARE PROVIDED. ENCOURAGED PT TO ATTEND AND PARTICIPATE IN SOTO MILIEU. R- PT IS ALERT AND ORIENTED TO PERSON, PLACE, APPROXIMATE TIME. PLEASANTLY CONFUSED. RESPS EASY AND EVEN ON ROOM AIR. MOOD IS STABLE WITH APPROPRIATE AFFECT. SPEECH IS WNL AND COHERENT. ABLE TO COMMUNICATE AND MAKE NEEDS KNOWN WITHOUT DIFFICULTY. PT DENIES SI/HI, INTENT OR PLAN. PT DENIES HALLUCINATIONS. PT VOICING QUESTIONABLE DELUSION THIS MORNING, STATED TO STAFF "DID SOMEONE BREAK IN HERE AND LEONOR US LAST NIGHT?" ADVISED PT THAT DID NOT HAPPEN. PT STATES "I COULD'VE SWORN IT DID. I GUESS NOT. MAYBE IT WAS A DREAM". PT IS MEDICATION COMPLIANT WITHOUT DIFFICULTY. CALM AND COOPERATIVE WITH ALL AREAS OF CARE. VERY PLEASANT. INTERACTS WELL WITH STAFF AND PEERS. NO DISTRESS NOTED. P- PLAN TO CONTINUE CURRENT TREATMENT.
--- NOTE | 2020-08-02 14:28 | NUR ---
PT SHOWERED THIS AFTERNOON, MINIMAL ASSIST FROM STAFF NEEDED, PT REQUIRED ONLY SET UP ASSIST. PT COMPLETED ORAL HYGIENE CARE WELL. BED LINENS CHANGED. PT NOW RESTING IN BED QUIETLY. RESPS EASY AND EVEN ON ROOM AIR.
[2020-08-02 19:21] VITALS: BP 139/57
--- NOTE | 2020-08-02 22:30 | NUR ---
PATIENT WITH NO ADVERSE BEHAVIORS THIS HS. PT CALM, PLEASANT, AND INTERACTIVE. PT CAME DOWN TO DINING ROOM FOR HS SNACK AND SOCIALIZED WITH A PEER. PATIENT MEDICATION COMPLIANT WITHOUT DIFFICULTY. PATIENT DENIES SI/HI, HALLUCINATIONS, OR PAIN. NO NOTED RESPONDING TO INTERNAL STIMULI. PATIENT AMBULATORY WITH A WHEELED WALKER, GAIT STEADY. PT INDEPENDENT IN ADLS, CONTINENT OF BOWEL AND BLADDER. NO DISTRESS NOTED. PLAN IS TO CONTINUE TO MONITOR MOOD AND BEHAVIORS, MAINTAIN Q 15 MIN CHECKS AND PRN FOR SAFETY.
--- NOTE | 2020-08-03 02:22 | NUR ---
PATIENT AWAKE, SHUT DOOR. WHEN THIS RN WENT TO CHECK ON PATIENT, PATIENT HAD HIS WALKER BARRICADING DOOR CLOSED AND ATTEMPTED TO SHUT DOOR ON THIS RN. PT STATED "WHO ARE YOU, WHO ARE YOU". WHEN ATTEMPTING TO REDIRECT PATIENT, PATIENT STATED "YEAH RIGHT YOU HAVE BEEN TRYING TO COME IN MY ROOM ALL NIGHT". PATIENT REORIENTED THAT THE NOISE HE WAS HEARING WAS THE LAUNDRY ROOM NEXT DOOR. PT ACCEPTED REORIENTATION AND APOLOGIZED TRYING TO SHUT DOOR ON THIS RN. PT ALSO ADMITTED TO HEARING MALE AND FEMALE VOICES ABOUT GOING TO A GREEN PARTY, AND ALL HE WANTS TO DO IS GO HOME TO HIS . SUPPORT PROVIDED.
--- NOTE | 2020-08-03 06:20 | NUR ---
PATIENT OBSERVED ON Q 15 MIN CHECKS TO HAVE SLEPT APPROX 8 HOURS WITH X2 AWAKENINGS. NO DISTRESS NOTED.
--- NOTE | 2020-08-03 06:55 | NUR ---
BSG 67, ASYMPTOMATIC. ORANGE JUICE PROVIDED.
[2020-08-03 07:13] VITALS: BP 112/54
--- NOTE | 2020-08-03 08:43 | NUR ---
DR NGUYEN ROUNDED VIA TELEHEALTH, NEW ORDERS RECEIVED.
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
--- NOTE | 2020-08-03 18:08 | NUR ---
PT'S CALLED AND SPOKE TO ANOTHER RN. THE STATED THAT THE PT BECOMES DELUSIONAL WHEN HE IS CLOSE TO HAVING A GRANDMA SEIZURE. STATED THE LAST SEIZURE WAS April AND STATES HE HAS MULTIPLE IN A DAYS TIME. ALSO STATES THE PT HAS THEM EVERY 2-3 MONTHS. PT SPEAKING TO HIS AND STATES TO HER "YOU LISTEN TO ME. I CAN HEAR DOUBT IN YOUR VOICE AND I AM THE MAN OF THE HOUSE AND YOU WILL LISTEN TO ME". PT STATED "DONT LISTEN TO THEM, LISTEN TO ME. YOU COME HERE AND GET ME OUT OF THIS PLACE. IT IS NOT WHAT YOU THINK IT IS". PT CONTINUED TO TELL HE COULD HEAR DOUBT IN HER VOICE. PT IS VERY DELUSIONAL AND PARANOID AT THIS TIME. WILL CONTINUE TO MONITOR PT FOR SEIZURE LIKE ACTIVITY AND ENCOURAGE MEDICATION COMPLIANCE.
[2020-08-03 18:56] VITALS: BP 118/60
--- NOTE | 2020-08-03 21:03 | NUR ---
HELD [place]ANT[place] CLIENT DIDN'T EAT SNACK AND HE TENDS TO TREND LOW IN THE MORNING. STATES HE HAD A SO SO DAY. DENIES S/I OR H/I FOR FEELINGS OF ANGER. INTERACTIVE WITH STAFF AND PEERS. REVIEWED MEDICATION PRIOR TO GIVING. ROZEREM GIVEN FOR SLEEP. USES WALKER TO AMBULATE. WILL CONTINE TO MONITOR FOR SEIZURES, CHANGES IN MOOD/BEHAVIOR AND Q 15 MINS AND PRN FOR SAFETY
--- NOTE | 2020-08-04 00:20 | NUR ---
24 HR chart check completed.
[2020-08-04 06:47] VITALS: BP 116/64
--- NOTE | 2020-08-04 06:47 | NUR ---
SLEPT AN INTERUPTED 7 HOURS. EASILY AWAKENED FOR BSG--102. MEDICATION COMPLIANT
--- NOTE | 2020-08-04 08:00 | NUR ---
Patient resting quietly with no c/o discomfort. Respirations easy and regular. Vital signs stable. No overt distress. LAKISHA TAPIA
--- NOTE | 2020-08-04 08:15 | NUR ---
PHYSICAL THERAPY TREATMENT TIME: 21 minutes total Patient presented to therapy in supine in bed with head of bed elevated and bed alarm off. Patient has no complaints. Patient gives informed consent for treatment. Patient was identified by name and on wristband, Patient is not on spO2, no catheter, no IVs. Patient uses Wh Walker. Patient performed supine <> sit EOB with SBA. Patient performed STS <> EOB with SBA. Patient ambulated with Wh Walker and Close Supervision for 220' x 1 with no LOB with 180 degree turns. Patient sat in chair in activity room and performed 5 Xs STSs with SBA from low chair. Patient completed sitting bilateral LE ther ex 2 x 10 reps each in all planes of movement including LAQs, marches, heel/toe raises and hip abduction for strengthening in order to facilitate increased functional mobility. Patient was left in chair in activity room with tray table and breakfast in front of him. Patient was left with U STAFF and other patient's present. Patient was 1:1 with this SERVICENOW ADMINISTRATOR DEVELOPER for 21 minutes total. RENATO CLEMONS SERVICENOW ADMINISTRATOR DEVELOPER
[2020-08-04 10:27] LABS: EOS # 0.1 10*3/uL (0.0-0.4); EOS % 2.7 % (1.0-4.0); HEMATOCRIT 36.4 % (42.0-52.0); LYMPH # 0.9 10*3/uL (1.3-4.4); LYMPH % 21.4 % (27.0-41.0); MEAN CELL VOLUME 104.3 fl (80.0-94.0); MEAN CORPUSCULAR HGB 34.7 pg (27.0-31.0); MEAN CORPUSCULAR HGB CONC 33.2 g/dl (33.0-37.0); MEAN PLATELET VOLUME 10.9 fl (9.6-12.3); MONO # 0.5 10*3/uL (0.1-1.0); MONO % 11.4 % (3.0-9.0); NEUT # 2.6 10*3/uL (2.3-7.9); NEUT % 63.3 % (47.0-73.0); PLATELET COUNT AUTOMATED 109 10*3/uL (130-400); RED BLOOD COUNT 3.49 10*6/uL (4.50-5.90); WHITE BLOOD COUNT 4.1 10*3/uL (4.8-10.8)
[2020-08-04 10:42] LABS: ALBUMIN 2.4 gm/dl (3.1-4.5); ALKALINE PHOSPHATASE 247 U/L (45-117); BUN 13 mg/dl (7-24); CHLORIDE 108 mmol/L (98-107); CREATININE 0.99 mg/dL (0.70-1.30); POTASSIUM 4.4 mmol/L (3.5-5.1); SGOT/AST 54 IU/L (3-35); SGPT/ALT 25 U/L (12-78); SODIUM 139 mmol/L (136-145); TOTAL PROTEIN 5.3 gm/dL (6.4-8.2)
--- NOTE | 2020-08-04 13:20 | NUR ---
Luna DIETRICH, [facility]- MADE AWARE OF PT'S AMMONIA LEVEL. NNO AT THIS TIME.
--- NOTE | 2020-08-04 14:49 | NUR ---
PM GROUP PT IN DINING ROOM WITH MALE PEER WATCHING BASKETBALL, HAVING SNACK, INTERACTING APPROPRIATELY.
--- NOTE | 2020-08-04 14:56 | NUR ---
PHYSICAL THERAPY CO-SIGN I approve of the Physical Therapy notes written above. Meseret Burton PT
--- NOTE | 2020-08-04 18:32 | NUR ---
PT IS ALERT, ORIENTED TO PERSON ONLY. CONFUSED. PT'S MOOD IS STABLE, COOPERATIVE, PLEASANT WITH ASSESSMENT AND DURING INTERACTIONS WITH STAFF AND PEERS. PT SHOWERED TODAY. PT NEEDS FREQUENT REDIRECTION FOR COMPLIANCE WITH FALL PRECAUTIONS. PT HAS BEEN MEDICATION COMPLIANT. Q15 MIN MONITORING PER POLGINI FOR SAFETY.
[2020-08-04 19:03] VITALS: BP 114/67
[2020-08-04 19:12] LABS: BILIRUBIN Negative (Negative); BLOOD Negative (Negative); CLARITY Turbid (Clear); COLOR Yellow (Yellow); GLUCOSE 3+ (Negative); KETONE Trace (Negative); LEUKO ESTERASE Negative (Negative); NITRITE Negative (Negative); UROBILINOGEN 0.2 E.U./dl (0.0-1.0)
[2020-08-04 19:27] LABS: BACTERIA 1+; EPITHELIAL CELLS 0-2; HYALINE CAST TNTC; RBC 0-2 rbc/hpf (0-2)
--- NOTE | 2020-08-04 20:00 | NUR ---
IT WAS ANOTHER SO SO DAY. NOTHING GOOD NOTHING BAD. ATE SNACK PROVIDED BY STAFF. USES WALKER WELL. NO C/O. WILL CONTINUE TO MONITOR FOR CHANGES IN MOOD/BEHAVIOR AND Q 15 MIN AND PRN FOR SAFETY
--- NOTE | 2020-08-05 00:21 | NUR ---
24 HR chart check completed.
--- NOTE | 2020-08-05 05:33 | NUR ---
SLEPT AN INTERUPTED 6.5 HOURS
[2020-08-05 07:50] VITALS: BP 148/56
--- NOTE | 2020-08-05 08:00 | NUR ---
Patient resting quietly with no c/o discomfort. Respirations easy and regular. Vital signs stable. No overt distress. LAKISHA TAPIA
--- NOTE | 2020-08-05 11:10 | NUR ---
AM GROUP PT WAS PRESENT FOR AM GROUP, PAINTING AND LISTENING TO MUSIC. PT PARTICIPATED AND INTERACTED APPROPRIATELY WITH STAFF, STUDENTS, AND PEERS. PT WENT BACK TO ROOM TOWARD END OF GROUP FOR REST BEFORE LUNCH.
--- NOTE | 2020-08-05 11:18 | NUR ---
PT IS ALERT, ORIENTED TO PERSON ONLY. CONFUSED. ST/LT MEMORY DEFICITS APPARENT. PT'S MOOD IS STABLE, COOPERATIVE, PLEASANT WITH ASSESSMENT AND DURING INTERACTIONS WITH STAFF AND PEERS. PT SPOKE WITH ON PHONE TODAY, PLEASANT DURING VERBAL INTERACTION. PT NEEDS FREQUENT REDIRECTION FOR COMPLIANCE WITH FALL PRECAUTIONS AND REMEMBERING TO USE WALKER WITH AMBULATION. PT HAS BEEN MEDICATION COMPLIANT WITHOUT DIFFICULTY, MEDICATION EDUCATION PROVIDED. Q15 MIN MONITORING PER POLICY FOR SAFETY.
[2020-08-05 20:00] VITALS: BP 132/72
--- NOTE | 2020-08-05 21:50 | NUR ---
Patient alert and oriented to person only with confusion noted. ST/LT memory deficits noted. Mood calm,cooperative and pleasant. Patient compliant with HS medications without any difficulty. Provided 1:1 for emotional support. Redirected/reoriented when needed.Plan to continue to encourage medication compliance. Will continue to provide emotional support and continue to redirect/reorient when needed/appropriate. Will monitor moods/behaviors. Q 15 minute safety checks continued and maintained. See [facility] flowsheet for further documentation.
--- NOTE | 2020-08-06 05:23 | NUR ---
Patient slept approx. 7 hours throughout shift. Q 15 minute safety checks continued and maintained.
[2020-08-06 08:00] VITALS: BP 133/54
--- NOTE | 2020-08-06 14:29 | NUR ---
PATIENT IS ALERT TO PERSON AND PLACE WITH CONFUSION. LONG/SHORT TERM MEMORY DEIFICTS. MOOD IS STABLE, CALM DEMEANOR. DENIES ANY HALLUCINATIONS, DELUSIONS, HI/SI OR PAIN. MEDICATION COMPLAINT WITH EDUCATION. Q 15 MINUTE SAFETY CHECKS MAINTAINED. INTERACTIVE WITH STAFF AND OTHER PATIENTS. PARTICIPATED IN MORNING GROUP SESSION. 1 PERSON ASSIST VERBAL CUEING WITH ACTIVITIES OF DAILY LIVING, CONTINENT OF BOWEL AND BLADDER. SET UP FOR MEALS, INTAKES ARE GOOD WITH ADEQUATE FLUIDS. CONTINUE TO MONITOR FOR AGGRESSION AND INCREASED CONFUSION. PROVIDE ONE ON ONE FOR EMOTIONAL SUPPORT, REDIRECTION/ORIENTATION PROVIDED.
--- NOTE | 2020-08-06 15:49 | NUR ---
Shift chart check completed.
[2020-08-06 19:30] VITALS: BP 111/56
[2020-08-06 21:35] VITALS: BP 128/62
--- NOTE | 2020-08-06 21:35 | NUR ---
PATIENT WALKING WITH MALE PEER AND WHEELED WALKER, PT BECAME UNSTEADY. MALE PEER ATTEMPTED TO INTERVENE, NURSING STAFF INTERVENED. NURSING STAFF ASKED PATIENT IF HE WAS OKAY AND ASSISTED TO SITTING POSITION IN ARMED CHAIR. PT STATED HE WASN'T SURE WHAT HAPPENED, THAT HE LOST HIS BALANCE SOME HOW. PT ENCOURAGED BY STAFF TO SIT UNTIL FEELING WELL, PATIENT STATED HE WAS FEELING OKAY WITH NO PHYSICAL COMPLAINTS. PT THEN ASSISTED BACK TO ROOM WITH X2 STAFF. VITALS TAKEN AND RECORDED A NURSING MEASURE, WNL AT T-98.4, P-90, R-18, BP 128/62 MANUAL, SPO2 94 RA, BSG 260. STAFF REITERATED IMPORTANCE OF USING FALL PRECAUTIONS AND ENCOURAGED TO USE CALL LIGHT. PT GAVE VERBAL UNDERSTANDING. PT CURRENTLY LAYING DOWN WITH EYES CLOSED, RESPIRATIONS EASY AND REGULAR, NO DISTRESS NOTED. BED LOCKED AND LOW, CALL LIGHT AUDIBLE.
--- NOTE | 2020-08-06 22:44 | NUR ---
PATIENT WITH NO ADVERSE BEHAVIORS THIS HS. PT ALERT TO PERSON AND PLACE WITH INTERMITTENT CONFUSION. ST/LT MEMORY GAPS NOTED. PT CALM, PLEASANT, AND INTERACTIVE THIS HS, SAT IN DINING ROOM FOR SNACK AND SOCIALIZED WITH A PEER. PATIENT MEDICATION COMPLIANT WITHOUT DIFFICULTY. PATIENT DENIES SI/HI, HALLUCINATIONS, OR PAIN. NO NOTED RESPONDING TO INTERNAL STIMULI. PATIENT AMBULATORY WITH A WHEELED WALKER, REQUIRES FREQUENT REDIRECTION FOR COMPLIANCE WITH FALL PRECAUTIONS DUE TO OCCASIONAL UNSTEADY GAIT AND/OR ATTEMPTS TO WALK WITHOUT WALKER. PT INDEPENDENT IN ADLS WITH PROMPTING, CONTINENT OF BOWEL AND BLADDER. NO DISTRESS NOTED. PLAN IS TO CONTINUE TO MONITOR MOOD AND BEHAVIORS, MAINTAIN Q 15 MIN CHECKS AND PRN FOR SAFETY.
--- NOTE | 2020-08-07 05:13 | NUR ---
24 HOUR CHART CHECK COMPLETED.
--- NOTE | 2020-08-07 05:27 | NUR ---
PATIENT OBSERVED ON Q 15 MIN CHECKS TO HAVE SLEPT APPROX 2 HOURS INTERRUPTED THIS SHIFT. NO DISTRESS NOTED.
[2020-08-07 07:33] VITALS: BP 121/45
--- NOTE | 2020-08-07 08:00 | NUR ---
PHYSICAL THERAPY TREATMENT TIME: 17 minutes total Patient presented to therapy in seated position in activity room with complaint of R LBP of 03/17. Patient gives informed consent for treatment. Patient was identified by name and on wristband. Patient performed STS from LOW CHAIR with SBA. Patient ambulated 320' x 1 with Wh Walker and Close Supervision. Patient had no LOB or SOB during gait. Patient's pain level remained the same with gait of 320' x 1. Patient was left in activity room in chair with table in front of him and breakfast on it. Patient treatment was witnessed by ANNETTA Villalta. Patient was left in activity room with other patients and [facility] Staff present. Patient was 1:1 with this GETTER FILLER for 17 minutes total. RENATO CLEMONS GETTER FILLER
--- NOTE | 2020-08-07 09:00 | NUR ---
Treatment Plan meeting was held this a.m. with AGUSTINA Kurtz RN, AT and Chair Car Driver in attendance. Plan for discharge this week. Pt has been referred but not accepted by [facility]. Clinical Updates faxed to [facility] this a.m. and Spoke with Phyllis Mar LPN.
--- NOTE | 2020-08-07 11:51 | NUR ---
AM GROUP PT DID NOT ATTEND MORNING GROUP THERAPY. PT WAS IN BED RESTING.
--- NOTE | 2020-08-07 11:52 | NUR ---
DR. FLANAGAN ON UNIT TO ASSESS PATIENT.
--- NOTE | 2020-08-07 12:28 | NUR ---
Faxed Updated Medication List and Copy of PASRR to Pt. is accepted. Notified Phyllis of Plans to discharge /Friday pending Second Covid Swab. Notified Nursing Staff of Need for Covid Swab today.
--- NOTE | 2020-08-07 13:00 | NUR ---
NASAL SWAB COLLECTED FOR COVID TESTING, PATIENT TOLERATED WELL AND SPECIMEN SENT TO LAB.
--- NOTE | 2020-08-07 13:40 | NUR ---
Left Message for Pt. Oanh to discuss discharge Plans and Acceptance to [facility].
--- NOTE | 2020-08-07 15:41 | NUR ---
PM GROUP/REMINISCING PT DID NOT ATTEND AFTERNOON GROUP THERAPY. PT WAS IN BED RESTING.
--- NOTE | 2020-08-07 15:42 | NUR ---
PATIENT IS ALERT TO PERSON AND PLACE WITH CONFUSION. LONG/SHORT TERM MEMORY DEIFICTS. MOOD IS STABLE, CALM DEMEANOR. DENIES ANY HALLUCINATIONS, DELUSIONS, HI/SI OR PAIN. MEDICATION COMPLAINT WITH EDUCATION. Q 15 MINUTE SAFETY CHECKS MAINTAINED. INTERACTIVE WITH STAFF AND OTHER PATIENTS. PARTICIPATED I GROUP SESSIONS. 1 PERSON ASSIST VERBAL CUEING WITH ACTIVITIES OF DAILY LIVING, CONTINENT OF BOWEL AND BLADDER. SET UP FOR MEALS, INTAKES ARE GOOD WITH ADEQUATE FLUIDS. CONTINUE TO MONITOR FOR AGGRESSION AND INCREASED CONFUSION. PROVIDE ONE ON ONE FOR EMOTIONAL SUPPORT, REDIRECTION/ORIENTATION PROVIDED.
[2020-08-07 19:00] VITALS: BP 124/54
--- NOTE | 2020-08-08 05:42 | NUR ---
SLEPT APPROX 7 HOURS WITH X2 BRIEF AWAKENINGS TO USE THE RESTROOM WITH ASSISTANCE. NO DISTRESS NOTED.
[2020-08-08 07:48] VITALS: BP 133/62
--- NOTE | 2020-08-08 07:50 | NUR ---
PHYSICAL THERAPY Patient presented to therapy in sitting in actvity room in chair with U staff and other patient's present. Patient has no complaints of pain. Patient is not on spO2 and does not have IVs. Patient gives informed consent for treatment. Patient was identified by name and on wristband. Patient performed STS from chair with SBA. Patient ambulated with Walker and Close Supervision for 350' x 1 with no LOB and no SOB. Patient performed 180 degree turns with no LOB. Patient was left sitting in chair in activity room with table in front of him. Patient was left with U staff present and other patients in activity room. Patient was 1:1 withth this SUPERVISOR FERTILIZER for 15 minutes total.
--- NOTE | 2020-08-08 09:00 | NUR ---
Treatment Plan meeting was held this a.m. with AGUSTINA Kurtz, RN, AT, GEOTECHNICAL LABORATORY TECHNICIAN-S and Event Planner in attendance. Plan for discharge /Friday. Pt. is accepted at [facility]. Pending Covid Hazel.
--- NOTE | 2020-08-08 11:09 | NUR ---
DR. FLANAGAN ON UNIT TO ASSESS PATIENT.
--- NOTE | 2020-08-08 11:34 | NUR ---
AM GROUP/EXERCISE AND LIGHT THERAPY PT ATTENDED MORNING GROUP THERAPY AND PARTICIPATED IN ALL ACTIVITIES. PT WAS FOCUSED AND ON TASK. PT IS PLEASANTLY CONFUSED AND EXHIBITED NO ADVERSE BEHAVIORS WHILE IN GROUP.
--- NOTE | 2020-08-08 15:05 | NUR ---
Left a voicemail message for pt's Oanh requesting a return call to discuss pt's discharge plan.
--- NOTE | 2020-08-08 15:39 | NUR ---
PM GROUP/MOVIE PT ATTENDED AFTERNOON GROUP THERAPY AND PARTICIPATED BY WATCHING THE MOVIE AND HAVING A SNACK. PT EXHIBITED NO ADVERSE BEHAVIORS WHILE IN GROUP. PT IS PLEASANTLY CONFUSED.
--- NOTE | 2020-08-08 16:31 | NUR ---
PT A&O TO PERSON AND APPROXIMATE PLACE. CONFUSION NOTED WITH MEMORY GAPS. STABLE MOOD. PARTICIPATING AND INTERACTIVE WITH PEERS AND STAFF. PT CAN BE INTRUSIVE WITH OTHER PT CARE AT TIMES, EASILY REDIRECTED. NO HALLUCINATIONS OR DELUSIONS NOTED. MEDICATION COMPLIANT WITHOUT DIFFICULTY. STABLE GAIT WITH WHEELED WALKER. PT SHOWERED TODAY AND SKIN ASSESSMENT COMPLETED. BEHAVIORS MONITORED WITH Q15 MINUTE SAFETY CHECKS. FALL AND SEIZURE PRECAUTIONS MAINTAINED. 1:1 PROVIDED FOR THERAPEUTIC COMMUNICATION. PT ASKED THIS NURSE IF HE WAS LEAVING TODAY. THIS NURSE EXPLAINED TO THE PT WE ARE WAITING ON A TEST RESULT AND SOON THAT RESULT CAME BACK HE WOULD BE DISCHARGED TO A REHAB FACILITY FOR BACK PAIN, PER 'S REQUEST SO PT DIDNT BECOME UPSET. PT DENIES SI/HI. DENIES SADNESS AND DEPRESSION. CONTINUE TO MONITOR BEHAVIORS WITH Q15 MINUTE SAFETY CHECKS AND OFFER 1:1 FOR THERAPEUTIC COMMUNICATIONS. ENCOURAGE MEDICATION COMPLIANCE AND EDUCATE ON MEDICATIONS WHEN NEEDED. SEE [facility] FLOWSHEET FOR SPECIFIC MONITORING.
[2020-08-08 19:19] VITALS: BP 121/62
--- NOTE | 2020-08-08 23:51 | NUR ---
P-PREOCCUPIED, INTRUSIVE I-REDIRECTION WITH 1:1 THERAPEUTIC INTERVENTIONS AND PRESENT REALITY. EDUCATE AND ENCOURAGE MEDICATION COMPLIANCE R-PATIENT MEDICATION COMPLIANT AT HS. PATIENT PROVIDED NOURISHMENT AND FLUIDS AT HS. PATIENT INTERACTING WITH PEERS IN DINING ROOM. PATIENT ATTEMPTING TO EXCERCISE IN DINING AREA AND ATTEMPTING TO ENCOURAGE PATIENTS TO PARTICIPATE. PATIENT SINING IN DINING ROOM AT HS. PATIENT PREOCCUPIED WITH TALKING TO HIS . PATIENT INFORMED THAT WAS CALLED AND WILL ATTEMPT AT A LATER TIME. PATIENT WITH NO HALLUCINATIONS OR DELUSIONS. PATIENT WITH NO SUICIDAL OR HOMICIDAL IDEATIONS P-CONTINUE TO ENCOURAGE MEDICATION COMPLIANCE, CONTINUE TO PRESENT REALITY, ENCOURAGE GROUP THERAPY WHILE AWAKE
--- NOTE | 2020-08-09 06:19 | NUR ---
PATIENT SLEPT 5 HOURS OF INTERRRUPTED SLEEP THROUGHOUT SHIFT. Q 15 MINUTE CHECKS MAINTAINED. 24 HR chart check completed.
[2020-08-09 06:54] VITALS: BP 122/58
--- NOTE | 2020-08-09 07:54 | NUR ---
Pt awake, alert and verbal. Ambulating with therapy this AM. Feeding self breakfast at present in dining room with peers. Resps easy and even on room air. No distress noted.
--- NOTE | 2020-08-09 09:00 | NUR ---
Treatment Plan meeting was held this a.m. with AGUSTINA Kurtz, RN, AT, ASMITA-S and Data Migration Consultant in attendance. Plan for discharge /Friday Pending Covid Results. Pt. is accepted at [facility].
--- NOTE | 2020-08-09 10:00 | NUR ---
ON UNIT TO SEE PT AT THIS TIME
--- NOTE | 2020-08-09 10:33 | NUR ---
PHYSICAL THERAPY Patient presented to therapy in sititng in activity room with U staff present. Patient has no complaints of pain. Patient gives informed consent for treatment. Patient was identified by name and on wristband. Patient performed sit <> stand from low chair with SBA. Patient ambulated 350' x 1 with no LOB and no SOB with Close Supervision - CGA. Patient tolerated gait well with no increased hip and LBP. Patient was left in sitting position in chair in activity room with [facility] staff and other patients present. Patient treatment was witnessed by ANNETTA Villalta. Patient was 1:1 with this PTAfor 15 minutes total. RENATO CLEMONS SOCIAL ORGANIZATION PROFESSOR
--- NOTE | 2020-08-09 10:58 | NUR ---
NO ADVERSE MOODS OR BEHAVIORS THIS SHIFT. PT IS ALERT AND ORIENTED TO PERSON AND PLACE WITH PLEASANT CONFUSION. MEMORY DEFICITS NOTED. RESPS EASY AND EVEN ON ROOM AIR. MOOD STABLE, AFFECT APPROPRIATE. SPEECH IS WNL AND COHERENT, ABLE TO MAKE NEEDS KNOWN WITHOUT DIFFICULTY. PT DENIES SI/HI, INTENT OR PLAN. PT DENIES FEELING SAD, DEPRESSED, ANXIOUS OR HOPELESS. PT DENIES HALLUCINATIONS OR DELUSION AND NONE ARE NOTED. INTERACTING WELL WITH STAFF AND PEERS. NO DISTRESS NOTED. PLAN TO CONTINUE CURRENT TREATMENT.
--- NOTE | 2020-08-09 11:44 | NUR ---
AM GROUP/LIGHT THERAPY AND EXERCISE PT ATTENED MORNING GROUP THERAPY AND PARTICIPATED BY EXERCISING AND SPENDING TIME WITH THE LIGHT BOX. PT WAS IN GOOD SPIRITS AND EXHIBITED NO ADVERSE BEHAVIORS WHILE IN GROUP. PT IS PLEASANTLY CONFUSED.
--- NOTE | 2020-08-09 15:38 | NUR ---
PM GROUP PT DID NOT ATTEND AFTERNOON GROUP THERAPY. PT WAS IN BED RESTING.
--- NOTE | 2020-08-09 15:41 | NUR ---
Transportation arranged with [facility] to Transport with service support representative time 12:00 .
[2020-08-09 19:00] VITALS: BP 107/55
--- NOTE | 2020-08-09 21:33 | NUR ---
P-IRRITABLE AND ARGUMENTATIVE I--SNACK PROVIDED. MEDICATION EDUCATION. TALKED 1:1. PROVIDED ENCOURAGEMENT AND SUPPORT. REORIENTED TO PLACE AND TIME. CONFIRED CLIENT IS LEAVING TOMORROW BUT DID NOT TELL HIM TO WHERE. R--I WANT [facility] TO COME PICK ME UP. THEY TOLD ME I COULD GO HOME TODAY. BOY YOU PEOPLE SURE HAVE THINGS MIXED UP. USES WALKER WHEN REMINDED. ATE SNACK AND WAS MEDICATION COMPLIANT P--MONITOR FOR CHANGES IN MOOD/BEHAVIOR. MONITOR Q 15 MINS AND PRN FOR SAFETY. PROVIDED EMOTIONAL SUPPORT AND REORIENTATION
--- NOTE | 2020-08-10 06:13 | NUR ---
SLEPT APPROX 7 UNINTERUPTED HOURS
[2020-08-10 06:36] VITALS: BP 120/62
--- NOTE | 2020-08-10 07:45 | NUR ---
Patient in dining room with peers eating breakfast with no c/o discomfort. Respirations easy and regular. Vital signs stable. No overt distress. LAKISHA TAPIA
[2020-08-10] MEDS ORDERED: HOMEMED PO (08:33)
[2020-08-10] MEDS ORDERED: ROZEREM8 MG PO (08:33)
[2020-08-10] MEDS ORDERED: QUETIAPINE FUMA25 MG PO (08:33)
[2020-08-10] MEDS ORDERED: THERA M PLUS T1 EACH PO (08:33)
[2020-08-10] MEDS ORDERED: RIVASTIGMINE1 EAC2 T (08:33)
--- NOTE | 2020-08-10 09:00 | NUR ---
Treatment Plan meeting was held this a.m. with Dr. Aragon via telephone, BOND UNDERWRITER Tessie, RN, AT, RING STAMPER-S and Hide Paster in attendance. Plan for discharge today. Pt. is accepted at [facility]. Pt. will receive Primary Care Follow up and Psychiatry at facility as needed or 1 time per Month. Transportation arranged with [facility] to transport with picker time 12:00 p.m.
--- NOTE | 2020-08-10 10:08 | NUR ---
NOTIFIED OF DISCHARGE FOR TODAY, STATES HE WILL BE HERE TO SEE HIM SOON.
[2020-08-10] MEDS ORDERED: LANTUS SOL100 UNIT/1 SC (10:19)
--- NOTE | 2020-08-10 10:30 | NUR ---
on unit to see pt. Medications reconciled for discharge
--- NOTE | 2020-08-10 11:30 | NUR ---
NO ADVERSE MOODS OR BEHAVIORS THIS SHIFT. PT IS ALERT AND ORIENTED TO PERSON AND PLACE. APPROXIMATE TIME. SITUATION VARIES. CONFUSION AND MEMORY GAPS NOTED AT TIMES. VERY PLEASANT AND COOPERATIVE. LOOKING FORWARD TO BEING DISCHARGED TODAY. PT VERBALIZED UNDERSTANDING TO THIS RN THAT HE WOULD BE GOING TO A REHAB FACILITY FOR A SHORT TIME. PT DECLINED TO SHOWER BEFORE LEAVING. CHANGED INTO HIS OWN CLOTHES AND STATED HE WOULD SHOWER LATER. PT DENIES SI/HI, INTENT OR PLAN. NO HALLUCINATIONS OR DELUSIONS. NO PARANOIA. NO AGGRESSIVE BEHAVIORS. CALM AND COOPERATIVE. NO DISTRESS NOTED. PLAN TO CONTINUE CURRENT TX AND PREPARE PT FOR HOSPITAL DISCHARGE THIS AFTERNOON.
--- NOTE | 2020-08-10 11:41 | NUR ---
AM GROUP/LEISURE INTERESTS PT ATTENDED MORNING GROUP THERAPY AND PARTICIPATED BY PAINTING AND LISTENING TO MUSIC. PT EXHIBITED NO ADVERSE BEHAVIORS WHILE IN GROUP. PT IS SET TO BE DISCHARGED FROM THE UNIT THIS AFTERNOON.
--- NOTE | 2020-08-10 12:00 | NUR ---
NURSE TO NURSE REPORT GIVEN TO TIARA AT [facility]. DISCHARGE MED LIST FAXED TO FACILITY PER REQUEST.
--- NOTE | 2020-08-10 12:06 | NUR ---
Discharge Paperwork faxed to [place].
--- NOTE | 2020-08-10 12:17 | NUR ---
PT DISCHARGED AT THIS TIME TO [facility]. [facility] WITH 2 SAFETY SPECIALIST. PERSONAL BELONGINGS WERE SENT WITH THE PT. REMAINING HOME MEDICATION NUPLAZID WAS SENT WITH THE PT. DISCHARGE PACKET PROVIDED FOR FACILITY. PT LEFT THE UNIT IN STABLE CONDITION. COMMUNITY HEALTH PROGRAM COORDINATOR PRESENT.
--- NOTE | 2020-08-10 14:02 | NUR ---
Patient discharged today to [facility] for SNF. Follow-up will be with Dr Aragon, visiting psychiatrist. While at [facility], pt's behaviors improved and his hallucinations resolved. Pt remained pleasantly confused. Pt did participate in programming.
== END 2020-08-10 12:17 | disposition other institution (70) | DRG 883 ==
LOC: 3N 11:26
PROVIDERS: Counselor Professional; ADMIT Psychiatry & Neurology Psychiatry; ATTEND Psychiatry & Neurology Psychiatry
DX: F63.81 Intermittent explosive disorder (principal); F02.81 Dementia in other diseases classified elsewhere, unspecified severity, with behavioral disturbance; E44.0 Moderate protein-calorie malnutrition; G30.1 Alzheimer's disease with late onset; R62.7 Adult failure to thrive; R26.2 Difficulty in walking, not elsewhere classified; E11.8 Type 2 diabetes mellitus with unspecified complications; E77.8 Other disorders of glycoprotein metabolism; Z20.828 Contact with and (suspected) exposure to other viral communicable diseases; F17.200 Nicotine dependence, unspecified, uncomplicated; E83.39 Other disorders of phosphorus metabolism; G20 Parkinson's disease; G89.29 Other chronic pain; M54.5 Low back pain; Z88.8 Allergy status to other drugs, medicaments and biological substances; Z68.27 Body mass index [BMI] 27.0-27.9, adult

== ENCOUNTER 2020-09-22 10:14 | Observation (INO) | payer MEDICARE, OTHER ==
[~2020-09-22] VITALS: Ht 170.2 cm; Wt 87.6 kg
[~2020-09-22 10:14] MED LIST changes: +EXELON1 EAC1 T; +HALDOL5 MG PO; +HALDOL5 MG/1 ML IJ; +HOMEMED PO; +NUPLAZID34 MG PO; +QUETIAPINE FUMA25 MG PO; +RIVASTIGMINE1 EAC2 T; +ROZEREM8 MG PO; +SINEMET 10-1001 EACH PO; +THERA M PLUS T1 EACH PO; +TYLENOL EXTRA500 MG PO
[2020-09-22 10:25] VITALS: BP 127/65
[2020-09-22 11:01] LABS: BASO % 0.6 % (0.0-1.0); EOS # 0.1 10*3/uL (0.0-0.4); EOS % 1.8 % (1.0-4.0); HEMATOCRIT 39.9 % (42.0-52.0); LYMPH # 1.1 10*3/uL (1.3-4.4); LYMPH % 20.8 % (27.0-41.0); MEAN CELL VOLUME 104.5 fl (80.0-94.0); MEAN CORPUSCULAR HGB CONC 32.6 g/dl (33.0-37.0); MEAN PLATELET VOLUME 10.2 fl (9.6-12.3); MONO # 0.6 10*3/uL (0.1-1.0); MONO % 11.5 % (3.0-9.0); NEUT # 3.3 10*3/uL (2.3-7.9); NEUT % 65.1 % (47.0-73.0); PLATELET COUNT AUTOMATED 122 10*3/uL (130-400); RED BLOOD COUNT 3.82 10*6/uL (4.50-5.90); RED CELL DISTRI WIDTH 14.3 % (0-14.5); WHITE BLOOD COUNT 5.1 10*3/uL (4.8-10.8)
[2020-09-22 11:21] LABS: ALBUMIN 2.3 gm/dl (3.1-4.5); ALKALINE PHOSPHATASE 276 U/L (45-117); BUN 15 mg/dl (7-24); CHLORIDE 111 mmol/L (98-107); POTASSIUM 3.9 mmol/L (3.5-5.1); SGOT/AST 36 IU/L (3-35); SGPT/ALT 11 U/L (12-78); SODIUM 142 mmol/L (136-145); TOTAL PROTEIN 5.8 gm/dL (6.4-8.2)
[2020-09-22 11:22] LABS: TROPONIN I < 0.015 ng/ml (<0.045)
[2020-09-22 12:00] VITALS: BP 120/72
[2020-09-22 14:00] VITALS: BP 128/82
[2020-09-22 14:20] VITALS: BP 139/78
[2020-09-22] MEDS ORDERED: NUPLAZID34 MG PO (15:10)
[2020-09-22] MEDS ORDERED: LANTUS SOL100 UNIT/1 SC (15:11)
[2020-09-22] MEDS ORDERED: MELOXICAM15 MG PO (15:12)
[2020-09-22] MEDS ORDERED: ROZEREM8 MG PO (15:16)
[2020-09-22] MEDS ORDERED: RIVASTIGMINE TAR6 M1 PO (15:16)
[2020-09-22 16:00] VITALS: BP 147/71
[2020-09-22 20:00] VITALS: BP 133/77
[2020-09-23] VITALS: BP 89/47
[2020-09-23 07:07] LABS: BUN 15 mg/dl (7-24); CHLORIDE 109 mmol/L (98-107); CREATININE 0.76 mg/dL (0.70-1.30); POTASSIUM 3.8 mmol/L (3.5-5.1); SODIUM 142 mmol/L (136-145)
[2020-09-23 08:00] VITALS: BP 98/41
[2020-09-23 12:00] VITALS: BP 115/62
[2020-09-23 16:00] VITALS: BP 150/81
[2020-09-24] VITALS: BP 93/47
[2020-09-24 06:45] LABS: BUN 16 mg/dl (7-24); CHLORIDE 112 mmol/L (98-107); CREATININE 0.81 mg/dL (0.70-1.30); POTASSIUM 3.4 mmol/L (3.5-5.1); SODIUM 143 mmol/L (136-145)
[2020-09-24 08:00] VITALS: BP 102/50
[2020-09-24 12:00] VITALS: BP 124/57
[2020-09-24 16:00] VITALS: BP 106/59
[2020-09-24 20:00] VITALS: BP 101/83
[2020-09-25] VITALS: BP 95/42
[2020-09-25 07:20] LABS: BUN 17 mg/dl (7-24); CHLORIDE 110 mmol/L (98-107); CREATININE 0.79 mg/dL (0.70-1.30); POTASSIUM 3.7 mmol/L (3.5-5.1); SODIUM 142 mmol/L (136-145)
[2020-09-25 08:00] VITALS: BP 111/59
[2020-09-25 12:00] VITALS: BP 101/49
[2020-09-25 16:00] VITALS: BP 129/56
== END 2020-09-25 17:30 | disposition home or self-care (01) ==
LOC: ED 10:14 → 5E 12:15 → EDHOLD 12:15 → 5E 13:50
PROVIDERS: Internal Medicine; ADMIT Internal Medicine; ATTEND Internal Medicine
DX: K70.31 Alcoholic cirrhosis of liver with ascites (principal); R14.0 Abdominal distension (gaseous); I50.41 Acute combined systolic (congestive) and diastolic (congestive) heart failure; E43 Unspecified severe protein-calorie malnutrition; G20 Parkinson's disease; R62.7 Adult failure to thrive; F22 Delusional disorders; G30.9 Alzheimer's disease, unspecified; F02.80 Dementia in other diseases classified elsewhere, unspecified severity, without behavioral disturbance, psychotic disturbance, mood disturbance, and anxiety; K59.09 Other constipation; Z98.890 Other specified postprocedural states; Z20.828 Contact with and (suspected) exposure to other viral communicable diseases

== ENCOUNTER → 2020-09-28 | Outpatient (CLI) | payer MEDICARE, OTHER ==
[~2020-09-28] MED LIST changes: +MELOXICAM15 MG PO; +RIVASTIGMINE TAR6 M1 PO
[2020-09-28 09:30] LABS: INTERNATIONAL NORM RATIO 1.2 (2.0-3.5)
== END | disposition home or self-care (01) ==
LOC: LAB 08:58 → EDSTATUS 10:00
PROVIDERS: ATTEND Surgery
DX: R18.8 Other ascites (principal); K74.60 Unspecified cirrhosis of liver

== ENCOUNTER → 2020-11-06 | Outpatient (CLI) | payer MEDICARE, OTHER | END | disposition home or self-care (01) | LOC: US 10-05 09:00 | PROVIDERS: ATTEND Surgery | DX: K80.20 Calculus of gallbladder without cholecystitis without obstruction (principal); K74.60 Unspecified cirrhosis of liver; N13.30 Unspecified hydronephrosis; R18.8 Other ascites ==

== ENCOUNTER → 2020-12-17 | Outpatient (CLI) | payer MEDICARE, OTHER ==
[2020-12-17 09:19] LABS: MEAN CELL VOLUME 102.8 fl (80.0-94.0); MEAN CORPUSCULAR HGB 33.9 pg (27.0-31.0); MEAN PLATELET VOLUME 10.4 fl (9.6-12.3); RED BLOOD COUNT 3.89 10*6/uL (4.50-5.90); RED CELL DISTRI WIDTH 16.1 % (0-14.5)
[2020-12-17 09:29] LABS: INTERNATIONAL NORM RATIO 1.3 (2.0-3.5)
[2020-12-17 09:37] LABS: ALBUMIN 2.2 gm/dl (3.1-4.5); ALKALINE PHOSPHATASE 228 U/L (45-117); BUN 18 mg/dl (7-24); CHLORIDE 107 mmol/L (98-107); CHOLESTEROL 164 mg/dL (<200); CREATININE 0.85 mg/dL (0.70-1.30); FREE T4 0.78 ng/dl (0.76-1.46); HDL CHOLESTEROL 48 mg/dl (40-60); IRON 89 ug/dL (65-175); LDL CHOLESTEROL 99 mg/dL (9-159); POTASSIUM 3.9 mmol/L (3.5-5.1); SGOT/AST 39 IU/L (3-35); SGPT/ALT 21 U/L (12-78); SODIUM 140 mmol/L (136-145); TOTAL IRON BINDING CAPACITY 150 ug/dl (250-450); TRIGLYCERIDES 85 mg/dl (<150); VLDL CHOLESTEROL 17 mg/dL (6-40)
[2020-12-19 05:06] LABS: ALPHA-1-ANTITRYPSIN, SERUM 100 mg/dL (101-187); IMMUNOGLOBULIN M, QNT 40 mg/dL (15-143)
[2020-12-19 07:06] LABS: HEP B CORE AB, IGM Negative (Negative); HEPATITIS B SURFACE AB Non Reactive (.); HEPATITIS B SURFACE AG Negative (Negative); HEPATITIS C VIRUS ANTIBODY <0.1 s/co (0.0-0.9)
[2020-12-19 15:07] LABS: ANTI-SMOOTH MUSCLE ANTIBODY 50 Units (0-19)
[2020-12-19 17:06] LABS: IGG SUBCLASS 1 756 mg/dL (248-810); IGG SUBCLASS 2 479 mg/dL (130-555); IGG SUBCLASS 3 65 mg/dL (15-102); IGG SUBCLASS 4 60 mg/dL (2-96); IMMUNOGLOBULIN G, QNT 1490 mg/dL (603-1613)
== END | disposition home or self-care (01) ==
LOC: LAB 08:31
PROVIDERS: Family Medicine; ATTEND Internal Medicine Gastroenterology
DX: E11.9 Type 2 diabetes mellitus without complications (principal); K74.60 Unspecified cirrhosis of liver; R18.8 Other ascites; G20 Parkinson's disease; N48.22 Cellulitis of corpus cavernosum and penis; F03.90 Unspecified dementia, unspecified severity, without behavioral disturbance, psychotic disturbance, mood disturbance, and anxiety; E78.00 Pure hypercholesterolemia, unspecified